=== PATIENT | male | born 1960 | race Caucasian/White ===

== ENCOUNTER 2016-08-18 13:07 | Emergency (ER) | payer OTHER ==
[2016-08-18 13:59] VITALS: BP 120/71; PULSE 87; RESP 16; TEMP 97.1
--- NOTE | 2016-08-18 14:14 | ED ---
General Adult HPI - General Chief complaint: Extremity Injury, Lower Stated complaint: Fall - Leg Injury/Pain Time Seen by Provider: 08/18/16 14:02 Source: patient, RN notes reviewed Mode of arrival: wheelchair Limitations: no limitations - History of Present Illness Initial comments: This is a 56-year-old male who presents with left knee pain 2 days. Patient states he hit his left knee on a file cabinet while walking to the bathroom. Patient states after this he has had pain to the lateral aspect of the left knee. Patient states there is pain with ambulation. Patient states he has a history of hairline fractures of the left hip in june 2016, patient states his left hip pain is at baseline today. Patient has already been evaluated by a physician for his left hip and patient has been using crutches for this. Patient denies any numbness/tingling/weakness to the left lower extremity.Patient denies any recent fever, chills, shortness breath, chest pain , abdominal pain, nausea/vomiting/diarrhea, back pain, hematuria, headache, or visual changes, or any other complaints. - Related Data Home Medications Medication Instructions Recorded Confirmed Baclofen [Lioresal] 10 mg PO TID 07/16/16 07/16/16 Gabapentin [Neurontin] 100 mg PO TID 07/16/16 07/16/16 Lisinopril [Zestril] 10 mg PO DAILY 07/16/16 07/16/16 amLODIPine [Norvasc] 5 mg PO DAILY 07/16/16 07/16/16 Previous Rx's Medication Instructions Recorded Hydrocodone/Acetaminophen [[place] 0.5 tab PO BID PRN #12 12/23/15 7.5-325] Hydrocodone/Acetaminophen [[place] 1 each PO Q6HR PRN #20 tab 07/16/16 5-325] Ibuprofen [Motrin] 600 mg PO Q6HR PRN #40 day 07/16/16 HYDROcodone/APAP 5-325MG [[place] 1 tab PO Q6HR #12 tab 08/18/16 5-325] Allergies Allergy/AdvReac Type Severity Reaction Status Date / Time No Known Allergies Allergy Verified 07/16/16 14:40 Review of Systems ROS Statement: Those systems with pertinent positive or pertinent negative responses have been documented in the HPI. ROS Other: All systems not noted in ROS Statement are negative. Past Medical History Past Medical History: Hypertension History of Any Multi-Drug Resistant Organisms: None Reported Past Surgical History: Orthopedic Surgery Past Psychological History: No Psychological Hx Reported Smoking Status: Current every day smoker Past Alcohol Use History: Occasional Past Drug Use History: None Reported General Exam - General Exam Comments Initial Comments: General: The patient is awake and alert, in no distress, and does not appear acutely ill. Neck: The neck is supple, there is no tenderness or JVD. Cardiovascular: There is a regular rate and rhythm. No murmur, rub or gallop is appreciated. Respiratory: Lungs are clear to auscultation, respirations are non-labored, breath sounds are equal. No wheezes, stridor, rales, or rhonchi. Musculoskeletal: There is tenderness to palpation over the lateral aspect of the left knee. There is a small bruise to the lateral aspect of the left knee. There is no effusion, swelling or erythema. Limited range of motion of the left lower extremity at the knee joint due to pain. Strength 5/5 and Sensation intact. Posterior tibial pulses 2+ bilaterally. Capillary refill is normal at less than 2 seconds. Neurological: A&O x 3. CN II-XII intact, There are no obvious motor or sensory deficits. Coordination appears grossly intact. Speech is normal. Skin: Skin is warm and dry and no rashes or lesions are noted. Psychiatric: Normal mood and affect. Limitations: no limitations Course Vital Signs 08/18/16 13:55 Temperature 97.1 F L Pulse Rate 87 Respiratory 16 Rate Blood Pressure 120/71 O2 Sat by Pulse 97 Oximetry Medical Decision Making - Medical Decision Making Is a 56-year-old male presents with left knee pain 2 days. On physical exam There is tenderness to palpation over the lateral aspect of the left knee. There is a small bruise to the lateral aspect of the left knee. There is no effusion, swelling or erythema. Limited range of motion of the left lower extremity at the knee joint due to pain. Strength 5/5 and Sensation intact. Posterior tibial pulses 2+ bilaterally. Capillary refill is normal at less than 2 seconds. Patient already has a knee immobilizer at home from a past visit to the . X-rays of the left knee were done and reviewed showing:#1 no acute fracture or dislocation. 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 Correlate clinically to exclude fracture. Reported by Dr. Stanley. Patient is tender to the upper outer quadrant of the patella. Patient at this time will be given a knee immobilizer and a referral for orthopedics. Discussed rest, ice, elevate and use knee immobilizer for support. Patient already has crutches. Discussed nonweightbearing to the left lower extremity. Discussed return parameters. Discussed that patient should follow up with PCP in one to 2 days or return to the [facility] for any worsening symptoms or for any further concerns. Patient was receptive to this plan and patient will be discharged home. I discussed his case with attending physician Dr. Junior who agrees the plan as stated above. Disposition Clinical Impression: Patellar fracture Disposition: HOME SELF-CARE Condition: Good Instructions: Patellar Fracture (ED) Additional Instructions: Please rest, ice, elevate, and use knee immobilizer for support. Please do not put any weight on the left lower extremity and use your crutches. Please use medication as prescribed. Please follow-up with orthopedics in the next 1-2 days or return to the [facility] for any worsening symptoms or for any further concerns. Prescriptions: HYDROcodone/APAP 5-325MG [[place] 5-325] 1 tab PO Q6HR #12 tab Time of Disposition: 14:59
--- NOTE | 2016-08-18 14:39 | XR ---
EXAMINATION TYPE: XR knee complete LT DATE OF EXAM: 08/18/2016 2:33 PM COMPARISON: 07/16/2016 HISTORY: Pain FINDINGS: Joint spaces are preserved. Osseous structures are intact. No acute fracture seen. Diffuse osteope shawna noted. Small amount of fluid in the suprapatellar bursa IMPRESSION: 1. No acute fracture or dislocation. 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 Correlate clinically to exclude f racture.
== END 2016-08-18 15:13 | disposition home or self-care (01) ==
LOC: EC 13:07
DX: S82.002A Unspecified fracture of left patella, initial encounter for closed fracture (principal); W22.03XA Walked into furniture, initial encounter; Y93.01 Activity, walking, marching and hiking; Z79.899 Other long term (current) drug therapy; I10 Essential (primary) hypertension; F17.200 Nicotine dependence, unspecified, uncomplicated
CPT/HCPCS: 73562; 99283; L1830 ×2

== ENCOUNTER → 2018-04-15 | Outpatient (CLI) | payer OTHER ==
--- NOTE | 2018-04-15 09:42 | XR ---
EXAMINATION TYPE: XR knee limited RT DATE OF EXAM: 04/15/2018 CLINICAL HISTORY: pain TECHNIQUE: Two views of the right knee are obtained. COMPARISON: 11/23/2015 FINDINGS: There is no acute fracture/dislocation. Severe narrowing medial tibiofemoral joint space. Mild patellofemoral joint space narrowing. Small to moderate suprapatellar joint effusion. The overly ing soft tissue appears unremarkable. IMPRESSION: There is no acute fracture or dislocation.ICD 10 NO FRACTURE, INITIAL EVALUATION
--- NOTE | 2018-04-15 09:53 | XR ---
EXAMINATION TYPE: XR lumbosacral spine min 4V DATE OF EXAM: 04/15/2018 CLINICAL HISTORY: pain COMPARISON: NONE TECHNIQUE: Frontal, lateral, and oblique images of the lumbar spine are obtained. FINDINGS: There are 5 lumbar type vertebral bodies identified. The lumbar spine shows satisfactory alignment without evidence of acute fracture or dislocation. Vertebral body heights are within normal limits. Severe multilevel degenerative disc space narrowing and spondylosis. Facet joint arthropathy noted. The overlying soft tissue appears unremarkable. IMPRESSION: No acute fracture or dislocation is seen in the lumbar spine.ICD 10 NO FRACTURE, INITIAL EVALUATION
== END | disposition home or self-care (01) ==
LOC: RADXRMAIN 08:53
PROVIDERS: ATTEND Family Medicine
DX: M54.5 Low back pain (principal); M25.561 Pain in right knee
CPT/HCPCS: 72110

== ENCOUNTER → 2019-01-04 | Outpatient (CLI) | payer OTHER ==
--- NOTE | 2019-01-04 15:23 | US ---
EXAMINATION TYPE: US kidneys/renal and bladder DATE OF EXAM: 01/04/2019 COMPARISON: NONE CLINICAL HISTORY: N28.89 R renal lesion. Right kidney lesion visualized on recent MRI of the lower freddy mber at open MRI. EXAM MEASUREMENTS: Right Kidney: 10.2 x 5.3 x 5.2 cm Left Kidney: 10.7 x 6.0 x 4.8 cm Right Kidney: no evidence of hydronephrosis Left Kidney: Solitary hypoechoic lesion upper pole = 1.4 x 1.0 x 1.3cm Bladder: appears wnl Bilateral Jets seen: yes There is no evidence for hydronephrosis at this point in time. No nephrolithiasis is seen. The urin lazaro bladder is anechoic. Bilateral ureteral jets are seen. IMPRESSION: 1.4 cm left renal lesion does not demonstrate clear increased through transmission and do es not demonstrate definitive characteristics of a cyst. Therefore three-phase enhanced CT abdomen is recommended for further characterization.
== END ==
LOC: RADUSWWP 13:58
PROVIDERS: ATTEND Internal Medicine
DX: N28.9 Disorder of kidney and ureter, unspecified (principal)
CPT/HCPCS: 76770

== ENCOUNTER → 2019-02-28 | Outpatient (CLI) | payer OTHER ==
--- NOTE | 2019-02-28 16:46 | CT ---
EXAMINATION TYPE: CT abdomen wo con DATE OF EXAM: 02/28/2019 COMPARISON: Ultrasound kidneys 01/04/2019 INDICATION: Right renal lesion. DLP: 547 mGycm, Automated exposure control for dose reduction was used. CONTRAST: 0 mL of Isovue 300. Study performed without Oral Contrast TECHNIQUE: Axial images were obtained from above the diaphragm to iliac crests in the axial plane at 5 mm thick sections. Reconstructed images are reviewed on the computer in the coronal plane. FINDINGS: Limited CT sections are obtained the lung bases. The lung bases are clear. CT ABDOMEN: Liver: Normal Spleen: Normal Pancreas: Normal Adrenal glands: The adrenal glands are normal. Gallbladder: Normal Kidneys: No masses are evident. No hydronephrosis is present. There is a 0.7 x 1.5 cm low-density e xophytic area on the mid posterior lateral kidney corresponding to the ultrasound finding. This measu res -10 Hounsfield units and may represent a small cyst. No renal stones are evident. Aorta: Vascular calcification is within the aorta. Inferior vena cava: Normal. Note is made of diverticular changes within the visualized portion of the sigmoid colon. Fecal debris is within the colon. IMPRESSIONS: 1. Left renal lesion at the mid cortex corresponds to the ultrasound finding. Findings appear sugges tive for, although cannot be conclusive based on the noncontrast CT examination, for cyst. Monitoring with ultrasound in 6 months is recommended.
== END | disposition home or self-care (01) ==
LOC: RADCTMAIN 10:55
PROVIDERS: ATTEND Internal Medicine
DX: N28.89 Other specified disorders of kidney and ureter (principal)
CPT/HCPCS: 74150

== ENCOUNTER → 2019-05-16 | Outpatient (CLI) | payer OTHER ==
[2019-05-16 12:58] LABS: INR 0.8 (<1.2); Partial Thromboplastin Time 25.9 sec (22.0-30.0); Prothrombin Time 9.3 sec (9.0-12.0)
[2019-05-16 13:04] LABS: ALT 18 U/L (21-72); AST 18 U/L (17-59); African American GFR (CKD) >90 (>60 ml/min/1.73 sqM); Albumin 3.8 g/dL (3.5-5.0); Alkaline Phosphatase 83 U/L (38-126); Anion Gap 9 mmol/L; Blood Urea Nitrogen 13 mg/dL (9-20); Calcium 9.2 mg/dL (8.4-10.2); Carbon Dioxide 31 mmol/L (22-30); Chloride 96 mmol/L (98-107); Glucose 112 mg/dL (74-99); HGB 13.8 gm/dL (13.0-17.5); MCH 33.4 pg (25.0-35.0); MCHC 33.7 g/dL (31.0-37.0); MCV 99.2 fL (80.0-100.0); Mean Platelet Volume 5.1; Platelet Count 478 k/uL (150-450); Potassium 3.7 mmol/L (3.5-5.1); RBC 4.14 m/uL (4.30-5.90); RDW 13.5 % (11.5-15.5); Sodium 136 mmol/L (137-145); Total Bilirubin 0.5 mg/dL (0.2-1.3); Total Protein 6.6 g/dL (6.3-8.2); WBC 11.1 k/uL (3.8-10.6)
[2019-05-16 13:21] LABS: Appearance,Urine Clear (Clear); Bilirubin,Urine Negative (Negative); Blood,Urine Negative (Negative); Color,Urine Yellow; Glucose,Urine (UA) Negative (Negative); Ketones,Urine Negative (Negative); Leukocyte Esterase,Urine Negative (Negative); Nitrite,Urine Negative (Negative); Protein,Urine Negative (Negative); Specific Gravity,Urine 1.017 (1.001-1.035); Urobilinogen,Urine <2.0 mg/dL (<2.0)
== END | disposition home or self-care (01) ==
LOC: LABPAT 11:54
PROVIDERS: ATTEND Orthopaedic Surgery
DX: Z01.812 Encounter for preprocedural laboratory examination (principal); Z01.818 Encounter for other preprocedural examination
CPT/HCPCS: 36415; 80053; 81003; 85027; 85610; 85730; 87070

== ENCOUNTER 2019-05-29 13:13 | Day surgery (SDC) | payer OTHER ==
[2019-05-23 11:44] VITALS: BMI 28.8
[~2019-05-29 13:13] MED LIST: ACETAMINOPHEN TAB 500 MG TAB PO ONE; DEXAMETHASONE SOD PHOSPHATE 10 MG/ML 1 ML VIAL IV ONE; HYDROmorphone 0.5 MG/0.5 ML SYRINGE IVP PRN; LACTATED RINGERS 1,000 ML IV SCH; MELOXICAM 7.5 MG TAB PO ONE; MIDAZOLAM 2 MG/2 ML VIAL IV PRN; ONDANSETRON 4 MG/2 ML VIAL IVP ONE; ROPIVACAINE 246.25 MG, EPINEPHrine 0.5 MG, KETOROLAC 30 MG, cloNIDine HCL/PF 80 MCG, WA... MISCELLANE ONE; SCOPOLAMINE 1.5MG/72HR PATCH TRANSDERM ONE; TRANEXAMIC ACID 1,000 MG in SODIUM CHLORIDE 0.9% 100 ML IVPB ONE
[2019-05-29 14:00] VITALS: BP 164/83; PULSE 100; RESP 16; TEMP 98.7
[2019-05-29] MEDS ORDERED: LIDOCAINE 1% 20 ML VIAL (10MG/ML) FOR IV START INTRADERMA ONE (14:29)
[2019-05-29] MEDS ORDERED: MIDAZOLAM 2 MG/2 ML VIAL IV ONE (14:35)
[2019-05-29] MEDS ORDERED: fentaNYL (PF) 50 MCG/ML 2 ML AMP IV ONE (14:35)
== END 2019-05-29 15:05 | disposition home or self-care (01) ==
LOC: OR 13:13
PROVIDERS: ATTEND Orthopaedic Surgery
DX: Z09 Encounter for follow-up examination after completed treatment for conditions other than malignant neoplasm (principal); Z53.09 Procedure and treatment not carried out because of other contraindication; H91.90 Unspecified hearing loss, unspecified ear; Z72.0 Tobacco use; I12.9 Hypertensive chronic kidney disease with stage 1 through stage 4 chronic kidney disease, or unspecified chronic kidney disease; N18.9 Chronic kidney disease, unspecified; Z79.891 Long term (current) use of opiate analgesic; Z79.899 Other long term (current) drug therapy
CPT/HCPCS: J2250; J1100; J2405; J3010

== ENCOUNTER 2019-06-02 10:41 | Inpatient (IN) | payer OTHER ==
[~2019-06-02 10:41] MED LIST changes: -DEXAMETHASONE SOD PHOSPHATE 10 MG/ML 1 ML VIAL IV ONE; -HYDROmorphone 0.5 MG/0.5 ML SYRINGE IVP PRN; -MELOXICAM 7.5 MG TAB PO ONE; -SCOPOLAMINE 1.5MG/72HR PATCH TRANSDERM ONE
[2019-06-02] MEDS: MELOXICAM 7.5 MG TAB PO ONE ×2 (11:21→18:32)
[2019-06-02] MEDS ORDERED: LIDOCAINE 1% 20 ML VIAL (10MG/ML) FOR IV START INTRADERMA ONE (11:43)
[2019-06-02] MEDS ORDERED: MIDAZOLAM 2 MG/2 ML VIAL IV ONE (12:09)
[2019-06-02] MEDS ORDERED: TRANEXAMIC ACID 1,000 MG/10 ML VIAL ONE (12:53)
[2019-06-02] MEDS ORDERED: PROPOFOL 10 MG/ML 20 ML VIAL IV ONE (12:53)
[2019-06-02] MEDS ORDERED: MIDAZOLAM 2 MG/2 ML VIAL ONE (12:53)
[2019-06-02] MEDS ORDERED: fentaNYL (PF) 50 MCG/ML 2 ML AMP ONE (12:53)
[2019-06-02] MEDS ORDERED: SODIUM CHLORIDE 0.9% 100 ML BAG ONE (12:53)
[2019-06-02] MEDS ORDERED: ROPIVACAINE 0.2%-NS ON-Q PUMP 1,090 MG, EMPTY PAIN BALL 1 EACH MISCELLANE PRN (13:31)
[2019-06-02] MEDS ORDERED: ceFAZolin 3,000 MG in SODIUM CHLORIDE 0.9% IRRIGATIO 3,000 ML IRRIGATION ONE (13:32)
--- NOTE | 2019-06-02 13:33 | P.ANPRN ---
Procedure Note - Anesthesia - Nerve Block Performed Right Adductor Canal Infusion Time Out Performed: Yes Date of Procedure: 06/02/19 Procedure Start Time: 12:08 Procedure Stop Time: 12:15 Location of Patient Procedure: PreOp Indication: Acute Post-Operative Pain, Requested by Surgeon Sedation Type: Sedate with meaningful contact maintained Preparation: Sterile Prep, Sterile Dressing Position: Supine Catheter: Indwelling Needle Types: Pajunk Needle Gauge: 18 Ultrasound used to visualize needle placement: Yes Ultrasound used to observe medication spread: Yes Injectate: 0.5% Ropivacaine (see comment for volume) (20 ml) Blood Aspirated: No Pain Paresthesia on Injection Noted: No Resistance on Injection: Normal Image Stored and Saved: Yes Events: Uneventful and Well Tolerated
[2019-06-02] MEDS ORDERED: LACTATED RINGERS 1,000 ML IV ONE (13:50)
--- NOTE | 2019-06-02 14:35 | P.OP ---
Date of Procedure: 06/02/19 Procedure(s) Performed: PREOPERATIVE DIAGNOSIS: Right knee severe osteoarthritis with genu varum POSTOPERATIVE DIAGNOSIS: Right knee severe osteoarthritis with genu varum OPERATION: Right knee cemented total replacement arthroplasty. ANESTHESIA: Spinal ESTIMATED BLOOD LOSS: 50 ml. NURSE DISCHARGE: Izabel Duvall PA-C (assistance with: patient positioning, retraction, exposure, hemostasis, leg positioning, implantation, irrigation, closure, dressing) COMPLICATIONS: None apparent. COMPONENTS IMPLANTED: Journey II BCS total knee system from [facility] INDICATIONS: Mr. Harley is a 59-year-old male with a history of right knee osteoarthritis. The patient's knee is end-stage, and conservative management has failed. The operation of knee replacement has been discussed at length in the office, as well as potential risks and complications. These are inclusive of, but not limited to: bleeding, infection, scarring, discomfort, blood vessel and nerve damage, need for further surgery, failure to relieve symptoms, persistence, recurrence, or worsening of problems, loosening, dislocation, wear, blood clot, pulmonary embolism, , gait dysfunction, stiffness, and other risks as discussed in the office. The patient elects to proceed and the consent form has been signed. PROCEDURE: The patient was taken to the operating room and positioned on the operating room table in the supine position. Anesthesia was initiated. Care was taken to make sure that all pressure points were adequately padded. The operative lower extremity was prepped and draped in the usual aseptic fashion using ChloraPrep. Ioban drape was used for the case and the patient received intravenous antibiotics within one hour of the incision. A pneumotourniquet and leg steele were used for the case. The limb was exsanguinated with an Esmarch bandage and the tourniquet was inflated to 350 mmHg. Time-out was called confirming the patient's identity, side, procedure and administration of antibiotics and tranexamic acid. The incision was then created midline directly over the right knee, carried down through skin and into the subcutaneous tissues and down to fascia. Full thickness subcutaneous medial flap was developed. Medial parapatellar arthrotomy was performed and the interior of the knee was inspected. There was end-stage osteoarthritis of the knee with a mild to moderate genu valgum type deformity. The fat pad was excised and proximal medial release on the tibia was completed using meticulous dissection and a curved osteotome. The anterior cruciate ligament was taken down. Note was made of significant attrition of the anterior and significant degenerative appearance of the cruciate ligaments. The exposure was excellent. The knee was flexed 90 degrees and the patella was everted. The [employer] pre- made distal cutting block was attached and pinned into position. The planned cut was analyzed visually and with the alignment melody and found to be satisfactory without the need for any adjustment. The oscillating saw was then used to make the distal femoral cut and make the alignment holes for the 5 in 1 block. This cut was confirmed to be flat with the flat end of an osteotome. The 5 in 1 block was then used to create the anterior posterior condylar resections and the chamfer cuts. The retractors were placed around the tibia and the tibial surface was addressed. The Visionaire pre-made guide was placed onto the exposed tibial surface and pinned into position to shelby the rotational alignment. The alignment of the guide was checked for depth of plannned resection, slope, and varus valgus. Guide was confirmed to be in good position and the tibial cut was then created with protection of the posterior neurovascular structures and the collateral ligaments. The tibial cut surface was removed and sized. Spacer block technique was then used to confirm that the flexion and extension gaps were equal. Soft tissue releases and adjustment of the tibial and/or femoral cuts were made, as necessary, until the gaps were equal. This included release of the posterior cruciate ligament, which was excessively tight in this patient. Prior to placing trial components, anesthetic solution consisting of ropivicaine with epinephrine, ketorolac, and clonidine was injected carefully and methodically in a grid pattern using aspiration technique into the soft tissue around the knee circumferentially, starting with the deeper tissues first and progressing to fascia, and then finally the skin/subcutaneous tissue. Particular care was taken when injecting the posterior capsule, with avoidance of the midline posterior area. The trial components were inserted. The tibial tray was allowed to self center and the patella was noted to track very well. The position of the tibial component was marked and noted to be nearly exactly aligned with the pre-drilled holes from the [employer]aire guide. The tibia was then finished for a stemmed tibial component. Patellar resurfacing was performed using a reamer. The size of the required patellar component was estimated and the patellar surface was then reamed down to a residual thickness which would recreate the cold springs thickness with the component. The exact placement of the patellar component was adjusted for posit ion based on preoperative x-rays and intraoperative findings. Trial components were removed and the cut surfaces of the bone were pulse lavaged thoroughly and dried. Cement was mixed on the back table and applied to the final components. Cement was then applied to the tibial surface and pressurized into the surface using finger pressurization technique. The tibial component was then applied and excess cement was removed after it was impacted securely and noted to be flush with the cut surface. In similar fashion, the cement was applied to the cut femoral surface, pressurized in using finger pressurization and the component was impacted into place. Excess cement was removed. The polyethylene spacer was then implanted and locked into position. The patellar component was then applied in similar technique and a patellar clamp was used to hold the patella in place as the cement hardened. Once the cement had fully hardened, the knee was reinspected. Any other cement extrusion was removed and final kinematic testing showed range of motion from 0 to 130 degrees with excellent stability, both medially and laterally and appropriate alignment of the leg. Patellar tracking was excellent. The knee was then thoroughly pulse lavaged with normal saline. The tourniquet was deflated and hemostasis was obtained with electrocautery and IV tranexamic acid, 1 g given at the start of the operation and 1 g at the start of closure. Closure was with #2 Ethibond in the fascia/capsule and supplemented with #2 Quill, 2-0 Vicryl suture was used for the subcutaneous tissues and 3-0 Quill for the skin. Dermabond/Steri-Strips were then applied. A lightly compressive dressing was applied using Webril and an Den wrap. The patient was then transferred to stretcher and taken to the recovery room in stable condition. Sponge and needle counts were correct.
[2019-06-02] MEDS ORDERED: HYDROmorphone 0.5 MG/0.5 ML SYRINGE IVP PRN ×2 (15:18)
[2019-06-02] MEDS ORDERED: NALOXONE 0.4 MG/ML 1 ML VIAL IV PRN (15:18)
[2019-06-02] MEDS ORDERED: BISACODYL 10 MG SUPP RECTAL PRN (15:18)
[2019-06-02] MEDS ORDERED: ONDANSETRON 4 MG/2 ML VIAL IVP PRN (15:18)
[2019-06-02] MEDS ORDERED: NA PHOS,M-B/NA PHOS,DI-BA 133 ML ENEMA RECTAL PRN (15:18)
[2019-06-02] MEDS ORDERED: MAGNESIUM HYDROXIDE 2,400 MG/10 ML CUP PO PRN (15:18)
[2019-06-02] MEDS ORDERED: HYDROcodone/APAP 7.5-325MG 1 EACH TAB PO PRN (15:18)
[2019-06-02] MEDS: HYDROmorphone 0.5 MG/0.5 ML SYRINGE IVP PRN ×4 (15:47→16:07)
--- NOTE | 2019-06-02 15:49 | XR ---
EXAMINATION TYPE: XR knee limited RT DATE OF EXAM: 06/02/2019 COMPARISON: NONE TECHNIQUE: Two views submitted HISTORY: Post op FINDINGS: There is a prosthetic knee in near anatomic alignment. There is soft tissue edema and emphysema. IMPRESSION: 1. Postoperative change. Appears in near-anatomic alignment
[2019-06-02] MEDS ORDERED: diphenhydrAMINE 50 MG/ML 1 ML VIAL IVP ONE (16:03)
[2019-06-02] MEDS: LACTATED RINGERS 1,000 ML IV SCH (16:07)
[2019-06-02 17:05] VITALS: BMI 29.2
[2019-06-02] MEDS: HYDROcodone/APAP 10-325MG 1 EACH TAB PO PRN (17:14)
[2019-06-02] MEDS ORDERED: ALPRAZolam 0.25 MG TAB PO PRN (18:02)
[2019-06-02] MEDS: ASPIRIN 325 MG TAB PO SCH (20:23)
[2019-06-02] MEDS: HYDROmorphone 1 MG/ML 1 ML SYRINGE IVP PRN (20:23)
[2019-06-02] MEDS: SENNOSIDES-DOCUSATE SODIUM 1 EACH TAB PO SCH (20:24)
[2019-06-02] MEDS: GABAPENTIN 300 MG CAP PO SCH (20:24)
[2019-06-02] MEDS: NEOMYCIN-BACITRACIN-POLY OINT 14 GM TUBE TOPICAL SCH ×2 (20:34→22:01)
[2019-06-02] MEDS: CHLORHEXIDINE GLUCONATE 15 ML CUP MUCOUS MEM SCH (21:56)
[2019-06-02] MEDS: NICOTINE 14MG/24HR PATCH TRANSDERM SCH (21:56)
--- NOTE | 2019-06-02 22:40 | CONS ---
CONSULTATION DATE OF SERVICE: 06/02/2019 REASON FOR CONSULTATION: Advice regarding hypertension and multiple medical issues, requested by Dr. Hummel. HISTORY OF PRESENT ILLNESS: This 59-year-old gentleman with a past medical history of hard of hearing, history of hypertension, history of DJD, history of pneumonia being followed by Dr. Guerra in the outpatient setting underwent right total knee arthroplasty by Dr. Hummel. The patient complains of throbbing pain in the knee. Otherwise, there is no history of chest pain, history of palpitations, history of headache, loss of consciousness, nausea, vomiting, diarrhea, fever, rigors, chills at this time. Blood pressure is slightly elevated at this time. PAST MEDICAL HISTORY: History of hard of hearing, hypertension, history of DJD, history of pneumonia. MEDICATIONS: Home medications are: 1. Allopurinol 100 mg p.o. daily. 2. Hydrocodone 2 tablets p.o. q.i.d. 3. Calcitriol 0.25 mg Wednesday. 4. Chlorthalidone 25 mg p.o. daily. 5. PerioGard 15 mL p.o. b.i.d. 6. Neosporin topically q.i.d. 7. Iron 320 mg p.o. daily. 8. Vitamin D3 2000 daily. 9. Norvasc 10 mg p.o. daily. 10.Neurontin 300 mg p.o. q.i.d. 11.Senokot-S 1 tablet p.o. b.i.d. 12.Aspirin 320 mg p.o. b.i.d. ALLERGIES: None. FAMILY HISTORY: No history of any heart disease or strokes in the family. SOCIAL HISTORY: Continued smoking. Occasional alcohol intake. REVIEW OF SYSTEMS: ENT: No diminished vision. No diminished hearing. CARDIOVASCULAR: No angina or palpitations. RESPIRATION: No cough or hemoptysis. GI no nausea or vomiting. no dysuria. NERVOUS SYSTEM: No numbness or weakness. ALLERGY/IMMUNOLOGY: No asthma or hayfever. MUSCULOSKELETAL as mentioned earlier. HEMATOLOGY/ONCOLOGY: No history of anemia. ENDOCRINE: No history of diabetes or hypothyroidism. CONSTITUTIONAL: As mentioned earlier. DERMATOLOGY: Negative. RHEUMATOLOGY: Negative. PSYCHIATRIC: As mentioned earlier. PHYSICAL EXAMINATION: Alert and oriented times three. Pulse is 80. Blood pressure 120/75, respiration 16. Temperature normal. Pulse ox 94 percent on 2 L. HEENT is conjunctivae normal. NECK: No JVD. CARDIOVASCULAR: S1, S2 muffled. RESPIRATORY: Breath sounds diminished in the bases. No rhonchi. No crackles. ABDOMEN: Soft, nontender. LEGS: Status post right knee joint arthroplasty. NERVOUS SYSTEM: Higher functions as mentioned earlier. Moves all 4 limbs. No focal motor or sensory deficits. LYMPHATICS: No lymph nodes palpable in the neck, axillae or groin. JOINTS: As mentioned earlier. LABS: The preop labs: WBC 11, hemoglobin 13.8. Coags are within normal limits. Chem panel showed glucose 112, otherwise other labs unremarkable. ASSESSMENT: 1. Status post right total knee joint arthroplasty. 2. Hypertension. 3. History of degenerative joint disease. 4. History of pneumonia. 5. History of renal failure. 6. History of nicotine dependence. RECOMMENDATIONS AND DISCUSSION: In this 59-year-old gentleman who presented with multiple medical problems, we will monitor the patient closely. Continue the current medications, symptomatic treatment. Otherwise, I recommend initiate the home dose of hypertensive medications. Monitor blood pressure closely and otherwise a copy of this being forwarded to Dr. Guerra who is the primary physician. MMODL / IJN: [id number] /
[2019-06-03] MEDS: HYDROmorphone 1 MG/ML 1 ML SYRINGE IVP PRN ×6 (00:07→21:53)
[2019-06-03] MEDS: TEMAZEPAM 15 MG CAP PO PRN (00:07)
[2019-06-03] MEDS: GABAPENTIN 300 MG CAP PO SCH ×5 (00:22→21:02)
[2019-06-03] MEDS: HYDROcodone/APAP 10-325MG 1 EACH TAB PO PRN ×3 (04:17→18:05)
[2019-06-03] MEDS: LACTATED RINGERS 1,000 ML IV SCH ×2 (04:46→13:27)
[2019-06-03 06:59] LABS: Basophils % (A) 0 %; Eosinophils % (A) 0 %; HCT 40.6 % (39.0-53.0); HGB 13.9 gm/dL (13.0-17.5); Lymphocytes % (A) 6 %; MCH 34.2 pg (25.0-35.0); MCHC 34.2 g/dL (31.0-37.0); MCV 99.9 fL (80.0-100.0); Mean Platelet Volume 5.2; Monocytes # (A) 0.7 k/uL (0-1.0); Monocytes % (A) 4 %; Neutrophils # (A) 16.1 k/uL (1.3-7.7); Neutrophils % (A) 89 %; Platelet Count 367 k/uL (150-450); RBC 4.06 m/uL (4.30-5.90); RDW 13.2 % (11.5-15.5)
[2019-06-03] MEDS: NICOTINE 14MG/24HR PATCH TRANSDERM SCH (08:26)
[2019-06-03] MEDS: MELOXICAM 7.5 MG TAB PO SCH (08:26)
[2019-06-03] MEDS: CHOLECALCIFEROL 1,000 UNIT TAB PO SCH (08:26)
[2019-06-03] MEDS: ASPIRIN 325 MG TAB PO SCH ×2 (08:26→20:06)
[2019-06-03] MEDS: ALLOPURINOL 100 MG TAB PO SCH (08:26)
[2019-06-03] MEDS: CHLORTHALIDONE 25 MG TAB PO SCH (08:27)
[2019-06-03] MEDS: amLODIPine 10 MG TAB PO SCH (08:27)
[2019-06-03] MEDS: NEOMYCIN-BACITRACIN-POLY OINT 14 GM TUBE TOPICAL SCH ×4 (08:27→21:03)
--- NOTE | 2019-06-03 08:32 | P.PN ---
Subjective Progress Note Date: 06/03/19 This is a 59 year-old male who is status post right total knee arthroplasty. This is post operative day #1 and patient is seen and evaluated at bedside. Patient states that the right knee is very sore and he has had difficulty putting weight on the right leg due to pain. Patient denies any fever/chills, numbness, weakness, tingling, abdominal pain, shortness of breath or chest pain. Objective - Vital Signs Vital signs: Vital Signs Temp 97.8 F 06/03/19 07:20 Pulse 96 06/03/19 07:20 Resp 14 06/03/19 07:20 BP 177/94 06/03/19 07:20 Pulse Ox 92 L 06/03/19 07:20 Intake & Output 06/02/19 06/03/19 06/03/19 18:59 06:59 18:59 Intake Total 2101 Output Total 50 1250 300 Balance 2051 -1250 -300 Weight 89.811 kg Intake: IV 2100 Output: Urine 1250 300 Estimated Blood Loss 50 Other: Voiding Method Toilet Urinal # Voids 1 # Bowel Movements 2 - Exam Vital signs are stable. Patient is in no acute distress and is alert and oriented 3. Calf is soft and nontender to palpation. Incision is clean, dry, and intact. Thigh high KARLIE hose removed. Patient has full foot and ankle motion without pain or difficulty. Neurovascular status and circulatory status are intact. - Labs CBC & Chem 7: 06/03/19 06:30 Labs: Abnormal Lab Results - Last 24 Hours (Table) 06/03/19 Range/Units 06:30 WBC 18.0 H (3.8-10.6) k/uL RBC 4.06 L (4.30-5.90) m/uL Neutrophils # 16.1 H (1.3-7.7) k/uL Assessment and Plan (1) Osteoarthritis of right knee Current Visit: Yes Status: Acute Code(s): M17.11 - UNILATERAL PRIMARY OSTEOARTHRITIS, RIGHT KNEE SNOMED Code(s): 566875772322474 (2) S/P total knee arthroplasty Current Visit: Yes Status: Acute Code(s): Z96.659 - PRESENCE OF UNSPECIFIED ARTIFICIAL KNEE JOINT SNOMED Code(s): 3872252942005 Plan: #1 Continue with routine postoperative care and pain control, daily dressing changes. Recommend knee-high KARLIE hose instead of thigh-high KARLIE hose. #2 Anticoagulation with aspirin. #3 Physical therapy today. #4 Appreciate input from medicine. #5 Will add Toradol for pain control. #6 Anticipate discharge home with home care later today or tomorrow depending on pain control and physical therapy.
[2019-06-03] MEDS ORDERED: DIAZEPAM 5 MG/ML 2 ML INJ IVP PRN (08:56)
--- NOTE | 2019-06-03 09:36 | P.PN ---
Progress Note - Text Progress Note Date: 06/03/19 Pt complaining of severe pain in the proximal thigh and distal leg. Pt states that minimal discomfort at the knee. OnQ pump system was found to be clamped, so pt not receiving medication. VSS RLE catheter site clean and dry A/P POD#1 s/p R TKA w/ adductor canal catheter - resume OnQ @ 12 ml/hr - valium for muscle spasm - continue Electra and ketorolac
[2019-06-03] MEDS: KETOROLAC 30 MG/ML 1 ML VIAL IVP PRN ×3 (10:11→21:53)
[2019-06-03] MEDS: DIAZEPAM 5 MG TAB PO PRN ×3 (10:16→23:08)
[2019-06-03] MEDS: CHLORHEXIDINE GLUCONATE 15 ML CUP MUCOUS MEM SCH ×2 (13:28→21:02)
--- NOTE | 2019-06-03 13:39 | P.PN ---
Subjective 59-year-old status post total knee arthroplasty.patient does have history of COPD continues to smoke saturations are 92% on 3 L patient doesn't have any significant wheeze. We'll further evaluate his hypoxia with starting with the chest x-ray. His chest x-ray doesn't show anything significant that explains his hypoxia and he may need a CAT scan with contrast to rule out any pulmonary embolism. Patient also denied any chest pain. Patient denied any leg pain. Constitutional: Denied any fatigue denied any fever. Cardio vascular: denied any chest pain, palpitations Gastrointestinal denied any nausea vomiting Pulmonary: Denied any shortness of breath cough Neurologic denied any new focal deficits All inpatient medications were reviewed and appropriate changes in these medications as dictated in the interval history and assessment and plan. Objective - Vital Signs Vital signs: Vital Signs Temp 97.8 F 06/03/19 07:20 Pulse 96 06/03/19 07:20 Resp 14 06/03/19 07:20 BP 177/94 06/03/19 07:20 Pulse Ox 92 L 06/03/19 07:20 Intake & Output 06/02/19 06/03/19 06/03/19 18:59 06:59 18:59 Intake Total 2101 296 Output Total 50 1250 300 Balance 2051 -1250 -4 Weight 89.811 kg Intake: IV 2101 Oral 296 Output: Urine 1250 300 Estimated Blood Loss 50 Other: Voiding Method Toilet Urinal # Voids 1 # Bowel Movements 2 - Exam PHYSICAL EXAMINATION: GENERAL: The patient is alert and oriented x3, not in any acute distress. Well developed, well nourished. HEENT: Pupils are round and equally reacting to light. EOMI. No scleral icterus. No conjunctival pallor. Normocephalic, atraumatic. No pharyngeal erythema. No thyromegaly. CARDIOVASCULAR: S1 and S2 present. No murmurs, rubs, or gallops. PULMONARY: Chest is clear to auscultation, no wheezing or crackles. ABDOMEN: Soft, nontender, nondistended, normoactive bowel sounds. No palpable organomegaly. MUSCULOSKELETAL: No joint swelling or deformity. EXTREMITIES: No cyanosis, clubbing, or pedal edema. NEUROLOGICAL: Gross neurological examination did not reveal any focal deficits. SKIN: No rashes. - Labs CBC & Chem 7: 06/03/19 06:30 Labs: Abnormal Lab Results - Last 24 Hours (Table) 06/03/19 Range/Units 06:30 WBC 18.0 H (3.8-10.6) k/uL RBC 4.06 L (4.30-5.90) m/uL Neutrophils # 16.1 H (1.3-7.7) k/uL Assessment and Plan Plan: -acute hypoxic respiratory failure. And a chest x-ray my suspicion is low for pulmonary embolism may be related to fluid overload from IV fluids which will be discontinued at this time we will await chest x-ray findings. -Hypertension continue his home medications -Degenerative joint disease -COPD without any significant acute exacerbation continue with his and inhalational treatments. -leukocytosis reactive secondary to surgery no clinical signs or symptoms of infection but chest x-ray will be obtained because of above-mentioned reasons -right knee arthroplasty DVT prophylaxis and pain management as per primary service
--- NOTE | 2019-06-03 14:07 | XR ---
EXAMINATION TYPE: XR chest 2V DATE OF EXAM: 06/03/2019 HISTORY: R/O Pneumonia. REFERENCE: Previous study dated 12/21/2015. FINDINGS: The lungs are overinflated. The heart is mildly enlarged. The lungs are clear. Pleural spac es are clear. IMPRESSION: COPD.
[2019-06-03] MEDS: SENNOSIDES-DOCUSATE SODIUM 1 EACH TAB PO SCH (20:08)
[2019-06-04] MEDS: HYDROcodone/APAP 10-325MG 1 EACH TAB PO PRN ×6 (00:58→23:54)
[2019-06-04] MEDS: HYDROmorphone 1 MG/ML 1 ML SYRINGE IVP PRN ×2 (02:14→05:27)
[2019-06-04] MEDS: KETOROLAC 30 MG/ML 1 ML VIAL IVP PRN ×4 (04:03→22:06)
[2019-06-04] MEDS: ASPIRIN 325 MG TAB PO SCH ×2 (08:05→21:12)
[2019-06-04] MEDS: CHOLECALCIFEROL 1,000 UNIT TAB PO SCH (08:05)
[2019-06-04] MEDS: GABAPENTIN 300 MG CAP PO SCH ×4 (08:06→21:12)
[2019-06-04] MEDS: ALLOPURINOL 100 MG TAB PO SCH (08:06)
[2019-06-04] MEDS: MELOXICAM 7.5 MG TAB PO SCH (08:06)
[2019-06-04] MEDS: CHLORTHALIDONE 25 MG TAB PO SCH (08:06)
[2019-06-04] MEDS: NEOMYCIN-BACITRACIN-POLY OINT 14 GM TUBE TOPICAL SCH ×4 (08:06→21:13)
[2019-06-04] MEDS: amLODIPine 10 MG TAB PO SCH (08:06)
--- NOTE | 2019-06-04 08:12 | P.PN ---
Progress Note - Text Progress Note Date: 06/04/19 Patient with complaints of severe pain in the right thigh and distal leg. Denies pain at the knee and incision. Some improvement in the pain since yesterday with adjustments in medication regimen. VSS Right adductor catheter site clean and dry OnQ @ 12 ml/hr Right thigh soft, but tender to palpation A/P POD#2 R TKA w/ adductor catheter - continue multimodal analgesia
--- NOTE | 2019-06-04 08:15 | P.PN ---
Subjective Progress Note Date: 06/04/19 This is a 59 year-old male who is status post right total knee arthroplasty. This is post operative day #2 and patient is seen and evaluated at bedside. Patient states that he is still having difficulty bearing weight on the right lower extremity due to pain. Patient denies any fever/chills, numbness, weakness, tingling, abdominal pain, shortness of breath or chest pain. Objective - Vital Signs Vital signs: Vital Signs Temp 98.5 F 06/04/19 07:00 Pulse 100 06/04/19 07:00 Resp 16 06/04/19 07:00 BP 157/95 06/04/19 07:00 Pulse Ox 92 L 06/04/19 07:00 Intake & Output 06/03/19 06/04/19 06/04/19 18:59 06:59 18:59 Intake Total 1488 480 Output Total 900 775 Balance 588 -775 480 Intake: Oral 1488 480 Output: Urine 900 775 Other: Voiding Method Toilet Urinal # Voids 1 # Bowel Movements 1 - Exam Vital signs are stable. Patient is in no acute distress and is alert and oriented 3. Calf is soft and nontender to palpation. Dressing is clean, dry, and intact. Patient has full foot and ankle motion without pain or difficulty. Neurovascular status and circulatory status are intact. - Labs CBC & Chem 7: 06/03/19 06:30 Assessment and Plan (1) Osteoarthritis of right knee Current Visit: Yes Status: Acute Code(s): M17.11 - UNILATERAL PRIMARY OSTEOARTHRITIS, RIGHT KNEE SNOMED Code(s): 084179879371709 (2) S/P total knee arthroplasty Current Visit: Yes Status: Acute Code(s): Z96.659 - PRESENCE OF UNSPECIFIED ARTIFICIAL KNEE JOINT SNOMED Code(s): 9106576311419 Plan: #1 Continue with routine postoperative care and pain control, daily dressing changes. #2 Anticoagulation with aspirin. #3 Physical therapy today. #4 Appreciate input from medicine. #5 Anticipate discharge home with home care later today or tomorrow depending on pain control and physical therapy.
[2019-06-04] MEDS: NICOTINE 14MG/24HR PATCH TRANSDERM SCH (09:53)
[2019-06-04] MEDS ORDERED: IPRATROPIUM-ALBUTEROL 3 ML NEB INHALATION PRN (10:38)
[2019-06-04] MEDS: CHLORHEXIDINE GLUCONATE 15 ML CUP MUCOUS MEM SCH ×2 (11:07→21:12)
--- NOTE | 2019-06-04 11:36 | P.PN ---
Subjective 59-year-old status post total knee arthroplasty.patient does have history of COPD continues to smoke saturations are 92% on 3 L patient doesn't have any significant wheeze. We'll further evaluate his hypoxia with starting with the chest x-ray. His chest x-ray doesn't show anything significant that explains his hypoxia and he may need a CAT scan with contrast to rule out any pulmonary embolism. Patient also denied any chest pain. Patient denied any leg pain. 06/04/2019 patient has slight wheezing patient was started on inhaled steroids inhalational treatments will not require any systemic steroids chest x-ray did not show any pulmonary edema or pneumonia, but clinical suspicion for pulmonary embolism is extremely low patient is on DVT prophylaxis it twice a day of aspirin 325 mg Constitutional: Denied any fatigue denied any fever. Cardio vascular: denied any chest pain, palpitations Gastrointestinal denied any nausea vomiting Pulmonary: Denied any shortness of breath cough Neurologic denied any new focal deficits All inpatient medications were reviewed and appropriate changes in these medications as dictated in the interval history and assessment and plan. Objective - Vital Signs Vital signs: Vital Signs Temp 98.5 F 06/04/19 07:00 Pulse 100 06/04/19 07:00 Resp 16 06/04/19 07:00 BP 157/95 06/04/19 07:00 Pulse Ox 92 L 06/04/19 07:00 Intake & Output 06/03/19 06/04/19 06/04/19 18:59 06:59 18:59 Intake Total 1488 480 Output Total 900 775 Balance 588 -775 480 Intake: Oral 1488 480 Output: Urine 900 775 Other: Voiding Method Toilet Urinal # Voids 1 # Bowel Movements 1 - Exam PHYSICAL EXAMINATION: GENERAL: The patient is alert and oriented x3, not in any acute distress. Well developed, well nourished. HEENT: Pupils are round and equally reacting to light. EOMI. No scleral icterus. No conjunctival pallor. Normocephalic, atraumatic. No pharyngeal erythema. No thyromegaly. CARDIOVASCULAR: S1 and S2 present. No murmurs, rubs, or gallops. PULMONARY:Minimal expiratory wheeze on exam no crackles were appreciated ABDOMEN: Soft, nontender, nondistended, normoactive bowel sounds. No palpable organomegaly. MUSCULOSKELETAL: No joint swelling or deformity. EXTREMITIES: No cyanosis, clubbing, or pedal edema. NEUROLOGICAL: Gross neurological examination did not reveal any focal deficits. SKIN: No rashes. - Labs CBC & Chem 7: 06/03/19 06:30 Assessment and Plan Plan: -acute hypoxic respiratory failure. chest x-ray did not show any significant abnormality but patient has COPD and emphysema, patient will be started on adult albuterol, ipratropium along with Symbicort. Patient is off oxygen today -Hypertension continue his home medications -Degenerative joint disease -COPD without any significant acute exacerbation continue with his and inhalational treatments. -leukocytosis reactive secondary to surgery no clinical signs or symptoms of infection but chest x-ray will be obtained because of above-mentioned reasons -right knee arthroplasty DVT prophylaxis and pain management as per primary service
[2019-06-04] MEDS: SYMBICORT 160-4.5 MCG INHALER INHALATION SCH (20:59)
[2019-06-04] MEDS: SENNOSIDES-DOCUSATE SODIUM 1 EACH TAB PO SCH (21:12)
[2019-06-04] MEDS: TEMAZEPAM 15 MG CAP PO PRN (21:12)
[2019-06-05] MEDS: KETOROLAC 30 MG/ML 1 ML VIAL IVP PRN ×2 (04:53→11:21)
[2019-06-05] MEDS: HYDROcodone/APAP 10-325MG 1 EACH TAB PO PRN ×2 (06:06→12:50)
[2019-06-05 07:40] LABS: Basophils % (A) 0 %; Eosinophils # (A) 0.2 k/uL (0-0.7); Eosinophils % (A) 2 %; HCT 34.6 % (39.0-53.0); HGB 11.5 gm/dL (13.0-17.5); Lymphocytes # (A) 1.1 k/uL (1.0-4.8); Lymphocytes % (A) 11 %; MCH 33.5 pg (25.0-35.0); MCHC 33.4 g/dL (31.0-37.0); MCV 100.2 fL (80.0-100.0); Mean Platelet Volume 5.9; Monocytes # (A) 0.6 k/uL (0-1.0); Monocytes % (A) 6 %; Neutrophils % (A) 80 %; Platelet Count 281 k/uL (150-450); RBC 3.45 m/uL (4.30-5.90); RDW 13.4 % (11.5-15.5)
--- NOTE | 2019-06-05 08:03 | P.PN ---
Progress Note - Text Progress Note Date: 06/05/19 Patient states the pain is much better than the previous days. Proximal thigh and distal leg pain improved. Minimal discomfort at the knee as before. Right adductor catheter @ 12 ml/hr VSS Right adductor catheter site clean and dry A/P POD#3 s/p R TKA - may remove adductor catheter prior to patient discharge - continue multimodal analgesia
[2019-06-05 08:07] VITALS: BP 138/79; RESP 14; TEMP 98
[2019-06-05] MEDS: MELOXICAM 7.5 MG TAB PO SCH (08:22)
[2019-06-05] MEDS: GABAPENTIN 300 MG CAP PO SCH ×2 (08:22→12:50)
[2019-06-05] MEDS: ALLOPURINOL 100 MG TAB PO SCH (08:22)
[2019-06-05] MEDS: amLODIPine 10 MG TAB PO SCH (08:22)
[2019-06-05] MEDS: NICOTINE 14MG/24HR PATCH TRANSDERM SCH (08:22)
[2019-06-05] MEDS: CHLORTHALIDONE 25 MG TAB PO SCH (08:22)
[2019-06-05] MEDS: ASPIRIN 325 MG TAB PO SCH (08:22)
[2019-06-05] MEDS: CHOLECALCIFEROL 1,000 UNIT TAB PO SCH (08:22)
[2019-06-05] MEDS: NEOMYCIN-BACITRACIN-POLY OINT 14 GM TUBE TOPICAL SCH ×2 (08:23→12:31)
[2019-06-05] MEDS: SYMBICORT 160-4.5 MCG INHALER INHALATION SCH (08:52)
[2019-06-05] MEDS ORDERED: CALCITRIOL 0.25 MCG CAP PO SCH (09:00)
--- NOTE | 2019-06-05 10:23 | P.DS ---
Providers Date of admission: 06/05/19 09:40 Expected date of discharge: 06/05/19 Attending physician: Usman Hummel Consults: 06/02/19 15:18 Consult Physician Routine Consulting Provider: Anastasiya Erwin Consult Reason/Comments: Medical management Do you want consulting provider notified?: Yes Primary care physician: Charlie Golden - Discharge Diagnosis(es) (1) Osteoarthritis of right knee Current Visit: Yes Status: Acute (2) S/P total knee arthroplasty Current Visit: Yes Status: Acute Hospital Course: This is a 59-year-old male who was last seen with complaint of continued right knee pain. The patient has a known history of degenerative arthritis of the right knee and presents to discuss surgical options. After discussion and consideration the patient elects to proceed with total right knee arthroplasty. The patient is seen preoperatively by his primary care physician and cleared for surgery. The patient is admitted to [facility] for total right knee arthroplasty. The procedures performed without complication or sequelae. Patient is doing well postoperatively. Vital signs are stable at discharge. Labs are stable at discharge. the patient is ambulating well with walker with minimal assistance. The patient is discharged to home on postop day #3.medical clearance the patient does have a pain contract with Dr. Domínguez but states they would like us to manage his acute postop pain. I was unable to contact Dr. Domínguez's office. I will send in a prescription for 1 week's worth. Please see orders and refer to the med rec for accurate list of medications. Patient Condition at Discharge: Good Plan - Discharge Summary Discharge Rx Participant: Yes New Discharge Prescriptions: New Aspirin 325 mg PO BID #1 tab Sennosides-Docusate Sodium [Senokot-S] 1 tab PO BID #60 tablet HYDROcodone/APAP 10-325MG [[place] 10-325] 1 - 2 tab PO Q4-6H PRN #50 tab PRN Reason: Pain No Action Gabapentin [Neurontin] 300 mg PO QID Cholecalciferol [Vitamin D3 (25 Mcg = 1000 Iu)] 2,000 unit PO DAILY amLODIPine [Norvasc] 10 mg PO QAM HYDROcodone/APAP 10-325MG [[place] 10-325] 2 tab PO QID Chlorthalidone 25 mg PO DAILY Allopurinol [Zyloprim] 100 mg PO DAILY Ferrous Sulfate [Iron] 325 mg PO DAILY Calcitriol 0.25 mcg PO MO Neomycin/Bacitracin/Polymyxinb [Neosporin Ointment] 1 applic TOPICAL QID Chlorhexidine Gluconate [Periogard] 15 ml PO BID Discharge Medication List Allopurinol [Zyloprim] 100 mg PO DAILY 05/23/19 [History] Calcitriol 0.25 mcg PO MO 05/23/19 [History] Chlorthalidone 25 mg PO DAILY 05/23/19 [History] Cholecalciferol [Vitamin D3 (25 Mcg = 1000 Iu)] 2,000 unit PO DAILY 05/23/19 [History] Ferrous Sulfate [Iron] 325 mg PO DAILY 05/23/19 [History] Gabapentin [Neurontin] 300 mg PO QID 05/23/19 [History] HYDROcodone/APAP 10-325MG [[place] 10-325] 2 tab PO QID 05/23/19 [History] amLODIPine [Norvasc] 10 mg PO QAM 05/23/19 [History] Neomycin/Bacitracin/Polymyxinb [Neosporin Ointment] 1 applic TOPICAL QID 05/30/19 [History] Chlorhexidine Gluconate [Periogard] 15 ml PO BID 05/31/19 [History] Aspirin 325 mg PO BID #1 tab 06/02/19 [Rx] Sennosides-Docusate Sodium [Senokot-S] 1 tab PO BID #60 tablet 06/02/19 [Rx] HYDROcodone/APAP 10-325MG [[place] 10-325] 1 - 2 tab PO Q4-6H PRN #50 tab 06/05/19 [Rx] Follow up Appointment(s)/Referral(s): [facility], [NON-STAFF] - As Needed Usman Hummel MD [STAFF PHYSICIAN] - 2 Weeks Activity/Diet/Wound Care/Special Instructions: May bear wt as tolerated w walker. May shower 48h post op if no drainage. Pt has pain contract with Dr Domínguez. Discharge Disposition: HOME WITH HOME HEALTH SERVICES
[2019-06-05 11:30] VITALS: PULSE 110
--- NOTE | 2019-06-05 11:40 | P.PN ---
Subjective 59-year-old status post total knee arthroplasty.patient does have history of COPD continues to smoke saturations are 92% on 3 L patient doesn't have any significant wheeze. We'll further evaluate his hypoxia with starting with the chest x-ray. His chest x-ray doesn't show anything significant that explains his hypoxia and he may need a CAT scan with contrast to rule out any pulmonary embolism. Patient also denied any chest pain. Patient denied any leg pain. 06/04/2019 patient has slight wheezing patient was started on inhaled steroids inhalational treatments will not require any systemic steroids chest x-ray did not show any pulmonary edema or pneumonia, but clinical suspicion for pulmonary embolism is extremely low patient is on DVT prophylaxis it twice a day of aspirin 325 mg 06/05/2019 Upper abolition patient saturations have gone down to 90% patient appears to have emphysema and COPD is not requiring any systemic steroids extensive counseling regarding nicotine cessation was provided and patient can be discharged my clinical suspicion for PE is extremely low Constitutional: Denied any fatigue denied any fever. Cardio vascular: denied any chest pain, palpitations Gastrointestinal denied any nausea vomiting Pulmonary: Denied any shortness of breath cough Neurologic denied any new focal deficits All inpatient medications were reviewed and appropriate changes in these medications as dictated in the interval history and assessment and plan. Objective - Vital Signs Vital signs: Vital Signs Temp 98 F 06/05/19 07:00 Pulse 110 H 06/05/19 11:29 Resp 14 06/05/19 08:43 BP 138/79 06/05/19 07:00 Pulse Ox 90 L 06/05/19 11:29 Intake & Output 06/04/19 06/05/19 06/05/19 18:59 06:59 18:59 Intake Total 480 Output Total 1025 Balance 480 -1025 Intake: Oral 480 Output: Urine 1025 Other: Voiding Method Toilet Urinal # Voids 2 - Exam PHYSICAL EXAMINATION: GENERAL: The patient is alert and oriented x3, not in any acute distress. Well developed, well nourished. HEENT: Pupils are round and equally reacting to light. EOMI. No scleral icterus. No conjunctival pallor. Normocephalic, atraumatic. No pharyngeal erythema. No thyromegaly. CARDIOVASCULAR: S1 and S2 present. No murmurs, rubs, or gallops. PULMONARY:Minimal expiratory wheeze on exam no crackles were appreciated ABDOMEN: Soft, nontender, nondistended, normoactive bowel sounds. No palpable organomegaly. MUSCULOSKELETAL: No joint swelling or deformity. EXTREMITIES: No cyanosis, clubbing, or pedal edema. NEUROLOGICAL: Gross neurological examination did not reveal any focal deficits. SKIN: No rashes. - Labs CBC & Chem 7: 06/05/19 06:52 Labs: Abnormal Lab Results - Last 24 Hours (Table) 06/05/19 Range/Units 06:52 RBC 3.45 L (4.30-5.90) m/uL Hgb 11.5 L (13.0-17.5) gm/dL Hct 34.6 L (39.0-53.0) % MCV 100.2 H (80.0-100.0) fL Neutrophils # 8.0 H (1.3-7.7) k/uL Assessment and Plan Plan: -acute hypoxic respiratory failure. chest x-ray did not show any significant abnormality but patient has COPD and emphysema, patient will be started on adult albuterol, ipratropium along with Symbicort. Patient will not require any home oxygen patient can be discharged from medical perspective on inhaled steroids and albuterol and. Opium -Hypertension continue his home medications -Degenerative joint disease -COPD with some exacerbation -leukocytosis reactive secondary to surgery no clinical signs or symptoms of infection but chest x-ray will be obtained because of above-mentioned reasons -right knee arthroplasty DVT prophylaxis and pain management as per primary service
[2019-06-05] MEDS: CHLORHEXIDINE GLUCONATE 15 ML CUP MUCOUS MEM SCH (12:30)
--- NOTE | 2019-06-06 12:33 | CDI ---
Documentation Clarification Form Date: 06/06/19 From: Shanae Jacob Phone: If you have a question about this query, please contact rAin Malik, [employer] at [phone] between 8am and 5pm. Admit Date: 06/05/19 Discharge Date: 06/05/19 Patient Name: Parveen Harley Visit Number: [id number] ATTENTION: The Clinical Documentation Specialists (CDI) and [facility] Coding Staff appreciate your assistance in clarifying documentation. Please respond to the clarification below the line at the bottom and electronically sign. The CDI & [facility] Coding staff will review the response and follow-up if needed. Please note: Queries are made part of the Legal Health Record. If you have any questions, please contact the author of this message via ITS. Dear Dr. Anastasiya Erwin, Patient was admitted as observation for right TKR, then admitted due to acute postop pain and acute hypoxic respiratory failure. History/Risk Factors: emphysema, hearing loss, HTN, CKD, smoker, Clinical Indicators: HTN with history of renal failure per consult. Per H&P patient has hx of HTN and kidney disease. Current BUN/CR/GFR: none Patients Baseline BUN/CR/GFR: none Treatment: IVF In order to capture the severity of condition, please clarify if the condition signifies: CKD Stage 1 (GFR > 90) CKD Stage 2 (GFR 60-89) CKD Stage 3 (GFR 30-59) CKD Stage 4 (GFR 15-29) CKD Stage 5 (GFR <15) ESRD Other, please specify Unable to determine Unable to determine MTDD
== END 2019-06-05 14:55 | disposition home health service (06) | DRG 983 ==
LOC: OR 10:41 → 4SSUR 15:08 → OR 23:42 → OBSVTOIN 06-05 09:40
PROVIDERS: ADMIT Orthopaedic Surgery; ATTEND Orthopaedic Surgery
PROC: 0SRC069 Replacement of Right Knee Joint with Oxidized Zirconium on Polyethylene Synthetic Substitute, Cemented, Open Approach (ICD-10-PCS; principal; 2019-06-02 12:30)
DX: J96.01 Acute respiratory failure with hypoxia (principal); G89.18 Other acute postprocedural pain; J43.9 Emphysema, unspecified; I12.9 Hypertensive chronic kidney disease with stage 1 through stage 4 chronic kidney disease, or unspecified chronic kidney disease; N18.9 Chronic kidney disease, unspecified; M62.838 Other muscle spasm; M17.11 Unilateral primary osteoarthritis, right knee; M21.161 Varus deformity, not elsewhere classified, right knee; M16.11 Unilateral primary osteoarthritis, right hip; D72.829 Elevated white blood cell count, unspecified; G56.00 Carpal tunnel syndrome, unspecified upper limb; H91.90 Unspecified hearing loss, unspecified ear; F17.210 Nicotine dependence, cigarettes, uncomplicated; Z71.6 Tobacco abuse counseling; Z79.891 Long term (current) use of opiate analgesic; Z79.899 Other long term (current) drug therapy; Z87.01 Personal history of pneumonia (recurrent); Z86.73 Personal history of transient ischemic attack (TIA), and cerebral infarction without residual deficits
CPT/HCPCS: 64448; 71046; 76942; 85025; 88300; 94640; 94760

== ENCOUNTER 2021-01-01 09:20 | Observation (INO) | payer OTHER ==
--- NOTE | 2021-01-01 09:54 | ED ---
Chest Pain HPI - General Chief Complaint: Chest Pain Stated Complaint: Chest pain, R leg swelling, and arm pain Time Seen by Provider: 01/01/21 09:27 Source: patient, RN notes reviewed Mode of arrival: wheelchair Limitations: no limitations - History of Present Illness Initial Comments: This is a 60-year-old male who states she's been having intermittent chest pain for the past several days also exertional dyspnea is not normal for him he states initially the pain in his chest that sharp but this morning it was achy with some left arm discomfort along with it. Also states she's had some right ankle swelling this morning. Currently at rest he feels fine with no chest pain or shortness of breath no fevers chills sweats cough no phlegm production. He does state he has been playing [employer] more than usual and did initially attributed the symptoms to that. MD Complaint: chest pain, other - Related Data Home Medications Medication Instructions Recorded Confirmed Chlorthalidone 25 mg PO DAILY 05/23/19 01/01/21 allopurinoL [Zyloprim] 100 mg PO DAILY 05/23/19 01/01/21 amLODIPine [Norvasc] 10 mg PO DAILY 05/23/19 01/01/21 Cyclobenzaprine [Flexeril] 10 mg PO TID PRN 01/01/21 01/01/21 Gabapentin 600 mg PO TID 01/01/21 01/01/21 HYDROcodone/APAP 10-325MG [[place] 1 tab PO TID PRN 01/01/21 01/01/21 10-325] Tiotropium Br/Olodaterol HCl 2 spray INHALATION RT-DAILY 01/01/21 01/01/21 [Stiolto Respimat Inhal [place]] Allergies Allergy/AdvReac Type Severity Reaction Status Date / Time No Known Allergies Allergy Verified 01/01/21 10:12 Review of Systems ROS Statement: Those systems with pertinent positive or pertinent negative responses have been documented in the HPI. ROS Other: All systems not noted in ROS Statement are negative. EKG Findings - EKG Results: EKG: interpreted by FATOU (Atrial fibrillation 124 heart rate QRS 98 QT since QTC 36/554 nonspecific T-wave configuration) Past Medical History Past Medical History: Hearing Disorder / Deafness, Hypertension, Musculoskeletal Disorder, Osteoarthritis (OA), Pneumonia Additional Past Medical History / Comment(s): 2 scabbed sores rt knee applying neosporin pt states to have rechecked prior to surgery by dr parekh, hx. renal failure 2 yrs. ago, hx. pneumonia x2 last year, bilateral torn rotator cuffs, gout, DDD, hx. fx C7 @age of 18, ca't lay flat on back, SOB w/exertion History of Any Multi-Drug Resistant Organisms: None Reported Past Surgical History: Orthopedic Surgery Additional Past Surgical History / Comment(s): arthroscopy rt knee Past Anesthesia/Blood Transfusion Reactions: No Reported Reaction Past Psychological History: No Psychological Hx Reported Smoking Status: Current every day smoker Past Alcohol Use History: Occasional Past Drug Use History: None Reported - Past Family History Mother Family Medical History: No Reported History General Exam - General Exam Comments Initial Comments: This is a well-developed well-nourished awake alert oriented times 3 male Limitations: no limitations General appearance: alert, anxious Head exam: Present: atraumatic, normocephalic, normal inspection Eye exam: Present: normal appearance, PERRL, EOMI. Absent: scleral icterus, conjunctival injection, periorbital swelling ENT exam: Present: normal exam, mucous membranes moist Neck exam: Present: normal inspection. Absent: tenderness, meningismus, lymphadenopathy Respiratory exam: Present: normal lung sounds bilaterally. Absent: respiratory distress, wheezes, rales, rhonchi, stridor Cardiovascular Exam: Present: normal rhythm, tachycardia, normal heart sounds. Absent: systolic murmur, diastolic murmur, rubs, gallop, clicks GI/Abdominal exam: Present: soft, normal bowel sounds. Absent: distended, tenderness, guarding, rebound, rigid Extremities exam: Present: normal inspection, full ROM, normal capillary refill, pedal edema (Trace edema without calf tenderness more so on the right to left). Absent: tenderness, joint swelling, calf tenderness Back exam: Present: normal inspection Neurological exam: Present: alert, oriented X3, CN II-XII intact Psychiatric exam: Present: normal affect, normal mood Skin exam: Present: warm, dry, intact, normal color. Absent: rash Course Vital Signs 01/01/21 01/01/21 01/01/21 09:21 09:34 10:15 Temperature 98.1 F Pulse Rate 124 H 118 H Pulse Rate [ 99 Pulse Oximetery ] Respiratory 18 20 Rate Blood Pressure 116/83 119/71 O2 Sat by Pulse 92 L 93 L Oximetry 01/01/21 11:45 Temperature 98.3 F Pulse Rate 86 Pulse Rate [ Pulse Oximetery ] Respiratory 17 Rate Blood Pressure 116/77 O2 Sat by Pulse 93 L Oximetry - Reevaluation(s) Reevaluation #1: 01/01/21 12:53 The patient did have evidence of possible PE with elevated d-dimer with the symptoms he presented with. CAT scan showed no CT evidence of PE at this time. Please see the complete report Chest Pain MDM - MDM I did discuss findings with the patient as well as Dr. Lima. Patient be admitted for evaluation of chest pain. Additionally he does have peripheral edema ultrasound of the right lower extremity will be performed Disposition Clinical Impression: Unstable angina pectoris, Chest pain Disposition: ADMITTED IP TO THIS HOSP Condition: Fair Referrals: Chico Guerra MD [Primary Care Provider] - 1-2 days
[2021-01-01 10:01] LABS: Basophils # (A) 0.1 k/uL (0-0.2); Basophils % (A) 1 %; Eosinophils # (A) 0.2 k/uL (0-0.7); Eosinophils % (A) 2 %; HCT 41.3 % (39.0-53.0); HGB 13.8 gm/dL (13.0-17.5); Lymphocytes # (A) 1.7 k/uL (1.0-4.8); Lymphocytes % (A) 14 %; MCH 31.2 pg (25.0-35.0); MCHC 33.4 g/dL (31.0-37.0); MCV 93.4 fL (80.0-100.0); Monocytes # (A) 0.5 k/uL (0-1.0); Monocytes % (A) 4 %; Neutrophils # (A) 9.7 k/uL (1.3-7.7); Neutrophils % (A) 79 %; Platelet Count 544 k/uL (150-450); RBC 4.42 m/uL (4.30-5.90); RDW 13.3 % (11.5-15.5); WBC 12.3 k/uL (3.8-10.6)
--- NOTE | 2021-01-01 10:10 | XR ---
EXAMINATION TYPE: XR chest 2V DATE OF EXAM: 01/01/2021 COMPARISON: Chest x-ray June 03, 2019 HISTORY: History of COPD with chest pain and shortness of breath TECHNIQUE: Frontal and lateral views of the chest are obtained. FINDINGS: There is background chronic emphysematous and parenchymal change without suspicious focal air space opacity, pleural effusion, or pneumothorax seen. The cardiac silhouette size remains enlar ged. The osseous structures are intact. IMPRESSION: Cardiomegaly and chronic emphysematous change without acute pulmonary process. No signif icant change from prior.
[2021-01-01 10:11] LABS: ALT 24 U/L (4-49); AST 24 U/L (17-59); African American GFR (CKD) >90 (>60 ml/min/1.73 sqM); Albumin 4.2 g/dL (3.5-5.0); Alkaline Phosphatase 114 U/L (38-126); Anion Gap 8 mmol/L; Blood Urea Nitrogen 20 mg/dL (9-20); Calcium 9.5 mg/dL (8.4-10.2); Carbon Dioxide 28 mmol/L (22-30); Chloride 97 mmol/L (98-107); Creatine Kinase 68 U/L (55-170); Glucose 124 mg/dL (74-99); INR 0.9 (<1.2); Lipase 36 U/L (23-300); Magnesium 1.8 mg/dL (1.6-2.3); Non-African American GFR(CKD) >90 (>60 ml/min/1.73 sqM); Potassium 3.5 mmol/L (3.5-5.1); Prothrombin Time 9.4 sec (9.0-12.0); Sodium 133 mmol/L (137-145); Total Bilirubin 0.4 mg/dL (0.2-1.3); Total Protein 6.9 g/dL (6.3-8.2)
[2021-01-01 10:22] LABS: D-Dimer 2.35 mg/L FEU (<0.60)
--- NOTE | 2021-01-01 11:42 | CT ---
CT CHEST FOR PULMONARY EMBOLISM. EXAMINATION TYPE: CT angio chest DATE OF EXAM: 01/01/2021 INDICATION: elevated ddimer, chest pain, fatigue CT DLP: 488.9 mGycm, Automated exposure control for dose reduction was used. CONTRAST: Patient injected with 100 mL of Isovue 370. COMPARISON: TECHNIQUE: CT of the chest is performed on a spiral scan at 2 mm thick sections. Study is performed with intravenous contrast timed for evaluation for pulmonary embolism. This will limit additional po rtions of the evaluation. 3-D MIP images reconstructed by the technologist are reviewed on the compu ter in the coronal and sagittal planes. FINDINGS: No persistent filling defects are evident to suggest an acute pulmonary embolism. Reflux into the dis breann inferior vena cava is present suggesting some right heart strain. No mediastinal or hilar adenopathy enlarged by CT criteria is evident. The ascending aorta diameter at the level of the main pulmonary artery is 3.6 cm. The main pulmonary artery diameter at the bifur cation is 3.3 cm. Small pericardial effusion is present. Lung windows are clear. Emphysematous changes are present. Limited CT section through the upper abdomen are unremarkable. IMPRESSIONS: 1. No acute pulmonary embolism. 2. There are some changes compatible with right heart strain. 3. Emphysematous changes. 4. Small pericardial effusion.
[2021-01-01] MEDS ORDERED: HEPARIN SODIUM 1,000 UN/ML (10ML VL) IV ONE ×2 (12:58→20:05)
[2021-01-01] MEDS ORDERED: NITROGLYCERIN SL TABS 0.4 MG TAB SUBLINGUAL PRN (12:58)
[2021-01-01] MEDS: HEPARIN SOD,PORK IN 0.45% NACL 25,000 UNIT in 0.45% NACL 1 250ML.BAG IV SCH (13:30)
[2021-01-01] MEDS: SODIUM CHLORIDE 0.9% 1,000 ML IV SCH (13:35)
[2021-01-01] MEDS: GABAPENTIN 300 MG CAP PO SCH ×2 (16:11→20:25)
[2021-01-01] MEDS: HYDROcodone/APAP 10-325MG 1 EACH TAB PO PRN (16:12)
[2021-01-01] MEDS ORDERED: HEPARIN SOD,PORK IN 0.45% NACL 25,000 UNIT in 0.45% NACL 1 250ML.BAG IV SCH (20:15)
[2021-01-01] MEDS: HEPARIN SODIUM 1,000 UN/ML (10ML VL) IV PRN (20:25)
[2021-01-01] MEDS: CYCLOBENZAPRINE 10 MG TAB PO PRN (20:36)
[2021-01-01 21:08] LABS: Basophils # (A) 0.1 k/uL (0-0.2); Basophils % (A) 1 %; Eosinophils # (A) 0.2 k/uL (0-0.7); Eosinophils % (A) 2 %; HCT 40.1 % (39.0-53.0); HGB 13.8 gm/dL (13.0-17.5); Lymphocytes # (A) 1.9 k/uL (1.0-4.8); Lymphocytes % (A) 19 %; MCH 32.2 pg (25.0-35.0); MCHC 34.4 g/dL (31.0-37.0); MCV 93.7 fL (80.0-100.0); Mean Platelet Volume 6.1; Monocytes # (A) 0.5 k/uL (0-1.0); Monocytes % (A) 5 %; Neutrophils # (A) 7.4 k/uL (1.3-7.7); Neutrophils % (A) 73 %; Platelet Count 499 k/uL (150-450); RBC 4.28 m/uL (4.30-5.90); RDW 13.3 % (11.5-15.5); WBC 10.2 k/uL (3.8-10.6)
[2021-01-01 21:14] LABS: INR 0.9 (<1.2); Partial Thromboplastin Time 56.9 sec (22.0-30.0)
--- NOTE | 2021-01-02 00:35 | P.HPIM ---
History of Present Illness H&P Date: 01/01/21 Chief Complaint: Chest Pain Patient is a 60-year-old male with a known history of COPD, hypertension, osteoarthritis, hearing disorder/deafness, chronic low back pain due to h erniated disks, history of gout and currently everyday smoker presents to ER with complaints of exertional dyspnea, intermittent chest pains and weakness. Patient states that he has been having shortness of breath and exertional dyspnea for the past 3 months which is getting worse and recently started having intermittent sharp chest pains mainly in the left retrosternal region. Patient states that this morning he was having chest pain and also achy feeling in the left arm along with the pain. Patient also felt very weak and increased short of breath. No headache or dizziness or lightheadedness. No diaphoresis. Patient also having increasing leg swelling right more than left. Patient says that he will always have cough due to his COPD. No recent change or increase sputum production. No fever no chills. No recent illnesses. EKG showed atrial fibrillation with rapid ventricular response. Chest x-ray showed cardiomegaly and chronic emphysematous change without acute pulmonary process. No significant change from prior. D-dimer is elevated at 2.35. Troponin x3 - and proBNP is 976 Coronavirus PCR not detected. WBC 12.5 hemoglobin 13.8 and platelets 544 sodium 133 potassium 3.5 chloride 97 BUN [address] angiogram of the chest showed no acute pulmonary embolism. There are some changes compatible with right heart strain. Review of Systems Constitutional: Patient denies any fever or chills . No generalized weakness or weight loss. Abdomen: Patient denied nausea vomiting and diarrhea and abdominal pain. Cardiovascular: Patient does have intermittent chest pains and shortness of breath. No palpitations. Increasing leg swelling. Respiratory: . Does have shortness of breath and exertional dyspnea. Cough without sputum production Neurologic: Patient denied any numbness or tingling headache. Musculoskeletal: Patient denies any complaints of joint swelling or deformity. Skin: Negative Psychiatric: Negative Endocrine: No heat or cold intolerance. No recent weight gain. Genitourinary: No dysuria or hematuria. All other 14 point ROS negative except the above Past Medical History Past Medical History: COPD, Hearing Disorder / Deafness, Hypertension, Musculoskeletal Disorder, Osteoarthritis (OA), Pneumonia Additional Past Medical History / Comment(s): Chronic low back pain/DDD/herniated discs-Pt sees Dr. Domínguez, fractured C7 at age 18 yrs, bronchitis, renal failure 2 yrs ago, bilateral torn rotator cuffs, bilateral carpal tunnel syndrome, past vertigo. History of Any Multi-Drug Resistant Organisms: None Reported Past Surgical History: Joint Replacement, Orthopedic Surgery Additional Past Surgical History / Comment(s): Arthroscopy R knee/total R knee. Past Anesthesia/Blood Transfusion Reactions: No Reported Reaction Additional Past Anesthesia/Blood Transfusion Reaction / Comment(s): Pt has clausterphobia Smoking Status: Current every day smoker - Past Family History Mother History Unknown: Yes Family Medical History: No Reported History Father History Unknown: Yes Medications and Allergies Home Medications Medication Instructions Recorded Confirmed Type Chlorthalidone 25 mg PO DAILY 05/23/19 01/01/21 History allopurinoL [Zyloprim] 100 mg PO DAILY 05/23/19 01/01/21 History amLODIPine [Norvasc] 10 mg PO DAILY 05/23/19 01/01/21 History Cyclobenzaprine [Flexeril] 10 mg PO TID PRN 01/01/21 01/01/21 History Gabapentin 600 mg PO TID 01/01/21 01/01/21 History HYDROcodone/APAP 10-325MG [[place] 1 tab PO TID PRN 01/01/21 01/01/21 History 10-325] Tiotropium Br/Olodaterol HCl 2 spray INHALATION RT-DAILY 01/01/21 01/01/21 History [Stiolto Respimat Inhal [place]] Allergies Allergy/AdvReac Type Severity Reaction Status Date / Time No Known Allergies Allergy Verified 01/01/21 10:12 Physical Exam Vitals: Vital Signs Temp Pulse Pulse Resp BP Pulse Ox 01/01/21 11:45 98.3 F 86 17 116/77 93 L 01/01/21 10:15 118 H 20 119/71 93 L 01/01/21 09:34 99 01/01/21 09:21 98.1 F 124 H 18 116/83 92 L Intake and Output 01/01/21 01/01/21 01/01/21 06:59 14:59 22:59 Other: Weight 90.718 kg PHYSICAL EXAMINATION: Patient is lying in the bed comfortably, no acute distress, awake alert and oriented.. HEENT: Normocephalic. Neck is supple. Pupils reactive. Nostrils clear. Oral cavity is moist. Ears reveal no drainage. Neck reveals no JVD, carotid bruits, or thyromegaly. CHEST EXAMINATION: Trachea is central. Symmetrical expansion. Bibasilar diminished sounds and minimal expiratory wheeze.. CARDIAC: Normal S1, S2 with no gallops. No murmurs ABDOMEN: Soft. Bowel sounds normal. No organomegaly. No abdominal bruits. Extremities: Bilateral lower extremity Dopplers pitting edema. Right slightly greater than left.. No clubbing or cyanosis Neurologically awake, alert, oriented x3 with well-coordinated movements. No focal deficits noted Skin: No rash or skin lesions. Psychiatric: Coperative. Nonsuicidal Musculoskeletal: No joint swelling or deformity. Normal range of motion. Results CBC & Chem 7: 01/01/21 20:33 01/01/21 09:46 Labs: Abnormal Lab Results - Last 24 Hours (Table) 01/01/21 01/01/21 01/01/21 Range/Units 09:46 09:46 09:46 WBC 12.3 H (3.8-10.6) k/uL Plt Count 544 H (150-450) k/uL Neutrophils # 9.7 H (1.3-7.7) k/uL D-Dimer 2.35 H (<0.60) mg/L FEU Sodium 133 L (137-145) mmol/L Chloride 97 L (98-107) mmol/L Glucose 124 H (74-99) mg/dL Thrombosis Risk Factor Assmnt - DVT/VTE Prophylaxis DVT/VTE Prophylaxis: Pharmacologic Prophylaxis ordered - Choose All That Apply Any of the Below Risk Factors Present?: Yes Each Factor Represents 1 point: Abnormal pulmonary function (COPD), Obesity (BMI >25) Other Risk Factors: Yes Each Risk Factor Represents 2 Points: Age 61-74 years Other congenital or acquired thrombophilia - If yes, enter type in comment: No Thrombosis Risk Factor Assessment Total Risk Factor Score: 4 Thrombosis Risk Factor Assessment Level: Moderate Risk Assessment and Plan Assessment: Atrial fibrillation with rapid ventricular rate. Possible unstable angina Intermittent chest pain and exertional dyspnea Elevated D-dimer level. CTA chest negative for PE. COPD Ongoing nicotine addiction Osteoarthritis Chronic low back pain due to herniated disc and follow-up with neurology. Hearing disorder/deafness. History of gout. Plan: Patient will be continued on telemetry monitoring. Troponin x3 -. CT angiogram was done due to elevated D-dimer level which is negative for PE. Right lower extremity duplex scan was ordered due to swelling greater than left. Patient will be continued heparin drip. 2D echocardiogram will be ordered and cardiology was consulted. Heart rate is controlled at this time. Continue with aspirin and lipid panel was ordered. Continue with breathing treatments as needed. Continue pain management and further recommendations based on the clinical course. Time with Patient: Greater than 30
[2021-01-02] MEDS: HEPARIN SODIUM 1,000 UN/ML (10ML VL) IV PRN ×2 (03:33→20:46)
[2021-01-02] MEDS: FORMOTEROL FUMARATE 20 MCG/2 ML NEBU INHALATION SCH ×2 (07:31→19:54)
[2021-01-02] MEDS: IPRATROPIUM 0.5 MG/2.5 ML NEBU INHALATION SCH ×4 (07:31→19:54)
[2021-01-02] MEDS: CYCLOBENZAPRINE 10 MG TAB PO PRN ×3 (07:40→22:42)
[2021-01-02] MEDS: HYDROcodone/APAP 10-325MG 1 EACH TAB PO PRN ×3 (07:40→22:42)
[2021-01-02] MEDS: allopurinoL 100 MG TAB PO SCH (07:40)
[2021-01-02] MEDS: GABAPENTIN 300 MG CAP PO SCH ×3 (07:40→22:42)
--- NOTE | 2021-01-02 07:50 | US ---
EXAMINATION TYPE: US venous doppler duplex LE RT DATE OF EXAM: 01/02/2021 7:15 AM COMPARISON: NONE CLINICAL HISTORY: R>L swelling. right leg edema SIDE PERFORMED: right TECHNIQUE: The lower extremity deep venous system is examined utilizing real time linear array sonog wilner with graded compression, doppler sonography and color-flow sonography. VESSELS IMAGED: Common Femoral Vein Deep Femoral Vein Greater Saphenous Vein * Femoral Vein Popliteal Vein Small Saphenous Vein * Proximal Calf Veins (* superficial vessels) Right Leg: no evidence of DVT IMPRESSION: MR right lower extremity ultrasound negative for deep venous thrombosis.
[2021-01-02] MEDS ORDERED: NON FORMULARY DRUG (Tiotropium Br/Olodaterol Hcl [Stiolto Respimat Inhal Spray] 4 GM Mist. INHALATION SCH (08:00)
[2021-01-02] MEDS: FUROSEMIDE 10 MG/ML 4 ML VIAL IV SCH ×2 (08:52→22:11)
[2021-01-02] MEDS: METOPROLOL TARTRATE 25 MG TAB PO SCH ×2 (08:52→22:11)
[2021-01-02] MEDS ORDERED: ASPIRIN 325 MG TAB PO SCH (09:00)
[2021-01-02] MEDS ORDERED: CHLORTHALIDONE 25 MG TAB PO SCH (09:00)
[2021-01-02 10:00] LABS: Basophils # (A) 0.08 X 10*3/uL (0.00-0.10); Basophils % (A) 0.8 %; Eosinophils # (A) 0.19 X 10*3/uL (0.04-0.35); Eosinophils % (A) 1.8 %; HCT 41.8 % (39.6-50.0); HGB 13.7 g/dL (13.0-17.0); Lymphocytes # (A) 1.91 X 10*3/uL (0.90-5.00); MCH 31.4 pg (27.0-32.0); MCHC 32.8 g/dL (32.0-37.0); MCV 95.9 fL (80.0-97.0); Mean Platelet Volume 8.4 fL (9.5-12.2); Monocytes # (A) 0.79 X 10*3/uL (0.20-1.00); Monocytes % (A) 7.4 %; Neutrophils # (A) 7.59 X 10*3/uL (1.80-7.70); Neutrophils % (A) 71.4 %; Platelet Count 467 X 10*3/uL (140-440); RBC 4.36 X 10*6/uL (4.40-5.60); RDW 13.2 % (11.5-14.5); WBC 10.62 X 10*3/uL (4.50-10.00)
[2021-01-02 10:11] LABS: INR 0.93 (0.90-1.11); Prothrombin Time 10.2 sec (9.9-11.9)
--- NOTE | 2021-01-02 11:08 | P.CRDCN ---
History of Present Illness History of present illness: HISTORY OF PRESENTING ILLNESS This is a pleasant 60-year-old male past medical history significant for hypertension, COPD, chronic back discomfort and chronic nicotine dependence. 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 We have been asked to see in consultation for chest pain. He presented to the hospital with symptoms of exertional shortness of breath for the last 3-4 months that has been getting progressively worse. Then a couple of days ago he started having sharp pains in the left precordial region prompting him to come to the hospital for further evaluation. He states the pain in the chest is extremely sharp and stabbing in nature and intense when it happens. He then leaves an achy sensation in the left shoulder and down the left arm. He also has noticed some increased swelling of the right lower extremity in the past couple of days. On arrival to the emergency department EKG obtained reveals atrial fibrillation with rapid ventricular rate. The patient denies prior history of this diagnosis. He was initiated on a heparin infusion and placed on the observation unit. He is seen and examined sitting up in no acute distress. He is mildly tachypneic with conversation. He denies significant orthopnea or PND. Telemetry tracings reveal ongoing atrial fibrillation with mostly controlled ventricular rates between 90-110. Chest x- ray reveals chronic episode manic changes. CTA is negative for pulmonary embolism, reflux into the distal IVC noted, emphysematous changes present and a small pericardial effusion. Right lower extremity Doppler negative for DVT. Laboratory data reviewed, WBC on admission 12.3 repeat today 10.6, hemoglobin 13.7, platelets 467, d-dimer 2.35, cardiac enzymes negative 3, sodium 133, potassium 3.5, creatinine 0.87, NT proBNP 976 and magnesium 1.8 REVIEW OF SYSTEMS At the time of my exam: CONSTITUTIONAL: Denies fever or chills. CARDIOVASCULAR: Complains of shortness of breath. Denies chest pain, orthopnea, PND or palpitations. RESPIRATORY: Denies cough. GASTROINTESTINAL: Denies abdominal pain, diarrhea, constipation, nausea or vomiting. MUSCULOSKELETAL: Denies myalgias. NEUROLOGIC: Denies numbness, tingling, headacbe or weakness. ENDOCRINE: Denies fatigue, weight change, polydipsia or polyurina. GENITOURINARY: Denies burning, hematuria or urgency with micturation. HEMATOLOGIC: Denies history of anemia or bleeding. PHYSICAL EXAMINATION Blood pressure 137/87 heart rate 95 afebrile and maintaining oxygen saturation on nasal cannula. CONSTITUTIONAL: No apparent distress. HEENT: Head is normocephalic. Pupils are equal, round. Sclerae anicteric. Mucous membranes of the mouth are moist. No JVD. No carotid bruit. CHEST EXAMINATION: 5 basilar rales, expiratory wheezes, no rhonchi. No chest wall tenderness is noted on palpation or with deep breathing. HEART EXAMINATION: Irregular rate and rhythm. S1, S2 heard. No murmurs, gallops or rub. Distant heart sounds. ABDOMEN: Soft, nontender. Positive bowel sounds. EXTREMITIES: 2+ peripheral pulses, right lower extremity 1+ pitting edema, no left lower extremity edema and no calf tenderness. NEUROLOGIC EXAMINATION: Patient is awake, alert and oriented x3. ASSESSMENT Acute heart failure, unknown type New-onset paroxysmal atrial fibrillation with rapid ventricular rate Hypertension COPD Chronic nicotine dependence PLAN An acute coronary event has been ruled out. Chest pain could be due to new onset afib with atypical features of the pain. Obtain 2-D echocardiogram and Doppler study to assess cardiac structure and function. Check TSH and reflex T4 T3. Initiate IV diuretics, Lasix 40 mg twice a day. Initiate metoprolol 25 mg twice a day for rate control. Continue heparin infusion pending echo findings. Follow renal function and electrolytes in the morning. Documented accurate intake and output along with daily weights. Smoking cessation highly recommended. Further recommendations to follow based upon clinical course. Thank you kindly for this consultation. Nurse Practitioner note has been reviewed, I agree with a documented findings and plan of care. Patient was seen and examined. Past Medical History Past Medical History: COPD, Hearing Disorder / Deafness, Hypertension, Musculoskeletal Disorder, Osteoarthritis (OA), Pneumonia Additional Past Medical History / Comment(s): Chronic low back p ain/DDD/herniated discs-Pt sees Dr. Domínguez, fractured C7 at age 18 yrs, bronchitis, renal failure 2 yrs ago, bilateral torn rotator cuffs, bilateral carpal tunnel syndrome, past vertigo. History of Any Multi-Drug Resistant Organisms: None Reported Past Surgical History: Joint Replacement, Orthopedic Surgery Additional Past Surgical History / Comment(s): Arthroscopy R knee/total R knee. Past Anesthesia/Blood Transfusion Reactions: No Reported Reaction Additional Past Anesthesia/Blood Transfusion Reaction / Comment(s): Pt has clausterphobia Smoking Status: Current every day smoker - Past Family History Mother History Unknown: Yes Family Medical History: No Reported History Father History Unknown: Yes Medications and Allergies Home Medications Medication Instructions Recorded Confirmed Type Chlorthalidone 25 mg PO DAILY 05/23/19 01/01/21 History allopurinoL [Zyloprim] 100 mg PO DAILY 05/23/19 01/01/21 History amLODIPine [Norvasc] 10 mg PO DAILY 05/23/19 01/01/21 History Cyclobenzaprine [Flexeril] 10 mg PO TID PRN 01/01/21 01/01/21 History Gabapentin 600 mg PO TID 01/01/21 01/01/21 History HYDROcodone/APAP 10-325MG [[place] 1 tab PO TID PRN 01/01/21 01/01/21 History 10-325] Tiotropium Br/Olodaterol HCl 2 spray INHALATION RT-DAILY 01/01/21 01/01/21 History [Stiolto Respimat Inhal [place]] Allergies Allergy/AdvReac Type Severity Reaction Status Date / Time No Known Allergies Allergy Verified 01/01/21 10:12 Physical Exam Vitals: Vital Signs Temp Pulse Pulse Resp BP BP Pulse Ox 01/02/21 07:45 95 01/02/21 07:43 73 16 01/02/21 07:39 91 01/02/21 07:38 91 01/02/21 07:32 85 95 01/02/21 07:00 97.7 F 90 20 137/87 93 L 01/02/21 02:00 99.0 F 73 16 120/73 95 01/02/21 00:17 16 01/01/21 20:00 16 01/01/21 19:20 97.8 F 85 16 100/65 92 L 01/01/21 17:48 97.8 F 87 16 105/57 95 01/01/21 17:47 18 01/01/21 17:00 98.2 F 87 18 124/79 98 01/01/21 16:05 87 18 108/69 96 01/01/21 13:00 92 18 111/75 98 01/01/21 11:45 98.3 F 86 17 116/77 93 L 01/01/21 10:15 118 H 20 119/71 93 L Intake and Output 01/01/21 01/02/21 01/02/21 22:59 06:59 14:59 Intake Total 388.855 91.024 118 Balance 388.855 91.024 118 Intake: IV 80 Sodium Chloride 0.9% 1, 80 000 ml @ 20 mls/hr IV . Q24H [facility] Rx#:[id number] Intake, IV Titration 68.855 91.024 Amount Heparin Sod,Pork in 0.45% 68.855 91.024 NaCl 25,000 unit In 0.45 % NaCl 1 250ml.bag @ 11 UNITS/KG/HR 9.979 mls/hr IV .Q24H [facility] Rx#: [id number] Oral 240 118 Other: Voiding Method Toilet Toilet Toilet # Voids 2 2 2 Results 01/02/21 06:54 01/01/21 09:46 Cardiac Enzymes 01/01/21 01/01/21 01/01/21 Range/Units 09:46 13:15 16:21 Troponin I <0.012 <0.012 <0.012 (0.000-0.034) ng/mL Coagulation 01/01/21 01/01/21 01/01/21 Range/Units 09:46 19:13 20:33 PT 9.4 10.0 (9.0-12.0) sec APTT 25.0 26.5 56.9 H (22.0-30.0) sec 01/02/21 01/02/21 Range/Units 01:30 06:54 PT 10.2 (9.0-12.0) sec APTT 31.5 H (22.0-30.0) sec CBC 01/01/21 01/02/21 Range/Units 20:33 06:54 WBC 10.2 10.62 H (3.8-10.6) k/uL RBC 4.28 L 4.36 L (4.30-5.90) m/uL Hgb 13.8 13.7 (13.0-17.5) gm/dL Hct 40.1 41.8 (39.0-53.0) % Plt Count 499 H 467 H (150-450) k/uL Current Medications Generic Name Dose Route Start Last Admin Trade Name Freq PRN Reason Stop Dose Admin Hydrocodone Bitart/Acetaminophen 1 each 01/01/21 13:00 01/02/21 07:40 Hydrocodone/Apap 10-325mg 1 Each Tab PO 1 each TID PRN Administration Pain Allopurinol 100 mg 01/02/21 09:00 01/02/21 07:40 Allopurinol 100 Mg Tab PO 100 mg DAILY [facility] Administration Aspirin 325 mg 01/02/21 09:00 01/02/21 07:40 Aspirin 325 Mg Tab PO 325 mg DAILY [facility] Administration Cyclobenzaprine HCl 10 mg 01/01/21 13:00 01/02/21 07:40 Cyclobenzaprine 10 Mg Tab PO 10 mg TID PRN Administration Muscle Spasm Formoterol Fumarate 20 mcg 01/02/21 08:00 01/02/21 07:31 Formoterol Fumarate 20 Mcg/2 Ml Nebu INHALATION 20 mcg RT-BID [facility] Administration Furosemide 40 mg 01/02/21 09:00 01/02/21 08:52 Furosemide 10 Mg/Ml 4 Ml Vial IV 40 mg Q12HR [facility] Administration Gabapentin 600 mg 01/01/21 16:00 01/02/21 07:40 Gabapentin 300 Mg Cap PO 600 mg TID [facility] Administration Heparin Sodium (Porcine) 0 unit 01/01/21 20:05 01/02/21 03:33 Heparin Sodium 1,000 Un/Ml (10ml Vl) IV 4,000 unit PER PROTOCOL PRN Administration Low PTT Protocol Sodium Chloride 1,000 mls @ 20 mls/hr 01/01/21 13:00 01/01/21 13:35 Saline 0.9% IV 20 mls/hr .Q24H [facility] Administration Heparin Sodium/Sodium Chloride 250 mls @ 9.979 mls/hr 01/01/21 13:00 01/02/21 03:34 25,000 unit/ Sodium Chloride IV 17 units/kg/hr .Q24H [facility] 15.422 mls/hr Titration Protocol 11 UNITS/KG/HR Ipratropium [place] 0.5 mg 01/02/21 08:00 01/02/21 07:31 Ipratropium 0.5 Mg/2.5 Ml Nebu INHALATION 0.5 mg RT-QID [facility] Administration Metoprolol Tartrate 25 mg 01/02/21 09:00 01/02/21 08:52 Metoprolol Tartrate 25 Mg Tab PO 25 mg BID [facility] Administration Nitroglycerin 0.4 mg 01/01/21 12:58 Nitroglycerin Sl Tabs 0.4 Mg Tab SUBLINGUAL Q5M PRN Chest Pain Intake and Output 01/01/21 01/02/21 01/02/21 22:59 06:59 14:59 Intake Total 388.855 91.024 118 Balance 388.855 91.024 118 Intake: IV 80 Sodium Chloride 0.9% 1, 80 000 ml @ 20 mls/hr IV . Q24H [facility] Rx#:[id number] Intake, IV Titration 68.855 91.024 Amount Heparin Sod,Pork in 0.45% 68.855 91.024 NaCl 25,000 unit In 0.45 % NaCl 1 250ml.bag @ 11 UNITS/KG/HR 9.979 mls/hr IV .Q24H [facility] Rx#: [id number] Oral 240 118 Other: Voiding Method Toilet Toilet Toilet # Voids 2 2 2 01/02/21 06:54 01/01/21 09:46
[2021-01-02] MEDS: HEPARIN SOD,PORK IN 0.45% NACL 25,000 UNIT in 0.45% NACL 1 250ML.BAG IV SCH ×2 (11:58→23:23)
--- NOTE | 2021-01-02 12:01 | ECHOF ---
Referral Reason:afib MEASUREMENTS -------- HEIGHT: 175.3 cm WEIGHT: 90.7 kg BP: RVIDd: 3.5 cm (< 3.3) IVSd: 1.3 cm (0.6 - 1.1) LVIDd: 3.7 cm (3.9 - 5.3) LVPWd: 1.2 cm (0.6 - 1.1) IVSs: 1.9 cm LVIDs: 2.5 cm LVPWs: 2.1 cm Ao Diam: 3.6 cm (2.0 - 3.7) AV Cusp: 2.1 cm (1.5 - 2.6) LA Diam: 2.9 cm (2.7 - 3.8) RAP: 5.00 mmHg RVSP: 11.77 mmHg FINDINGS -------- Atrial fibrillation. This was a technically difficult study with suboptimal views. The left ventricular size is normal. There is mild concentric left ventricular hypertrophy. Overa ll left ventricular systolic function is low-normal with, an EF between 50 - 55 %. The right ventricle is mildly enlarged. The left atrial size is normal. The right atrial size is normal. 5.0mg of Lumason was utilized for enhancement of images The aortic valve is trileaflet and appears structurally normal. The mitral valve is normal. There is trace mitral regurgitation. The tricuspid valve appears structurally normal. Trace tricuspid regurgitation present. Right rahul tricular systolic pressure is normal at < 35 mmHg. There is no pulmonic regurgitation present. The aortic root size is normal. IVC Not well visulized. There is no pericardial effusion. CONCLUSIONS -------- 1. The left ventricular size is normal. 2. There is mild concentric left ventricular hypertrophy. 3. Overall left ventricular systolic function is low-normal with, an EF between 50 - 55 %. 4. The right ventricle is mildly enlarged. 5. There is trace mitral regurgitation. 6. Trace tricuspid regurgitation present. 7. There is no pericardial effusion. SOIL SURVEYOR: Izabel Garber RDCS
[2021-01-02 14:33] LABS: African American GFR (CKD) 117.2 (60.0-200.0); BUN/Creat Ratio 27.14 Ratio (12.00-20.00); Calcium 9.1 mg/dL (8.7-10.3); Chol/HDL Ratio 4.49; LDL Cholesterol,Calculated 97.8 mg/dL (0.0-131.0); Non-African American GFR(CKD) 101.1 (60.0-200.0); Potassium 3.9 mmol/L (3.5-5.5); VLDL Calculation 24.2 mg/dL (5.00-40.00)
--- NOTE | 2021-01-02 15:30 | P.PN ---
Subjective Principal diagnosis: Patient is a 60-year-old male with a known history of COPD, hypertension, osteoarthritis, hearing disorder/deafness, chronic low back pain due to herniated disks, history of gout and currently everyday smoker presents to ER with complaints of exertional dyspnea, intermittent chest pains and weakness. Patient states that he has been having shortness of breath and exertional dyspnea for the past 3 months which is getting worse and recently started having intermittent sharp chest pains mainly in the left retrosternal region. Patient states that this morning he was having chest pain and also achy feeling in the left arm along with the pain. Patient also felt very weak and increased short of breath. No headache or dizziness or lightheadedness. No diaphoresis. Patient also having increasing leg swelling right more than left. Patient says that he will always have cough due to his COPD. No recent change or increase sputum production. No fever no chills. No recent illnesses. EKG showed atrial fibrillation with rapid ventricular response. Chest x-ray showed cardiomegaly and chronic emphysematous change without acute pulmonary process. No significant change from prior. D-dimer is elevated at 2.35. Troponin x3 - and proBNP is 976 Coronavirus PCR not detected. WBC 12.5 hemoglobin 13.8 and platelets 544 sodium 133 potassium 3.5 chloride 97 BUN [address] angiogram of the chest showed no acute pulmonary embolism. There are some changes compatible with right heart strain. 01/02/2021 Patient is seen and evaluated and follow-up currently continues on 3 L of oxygen via nasal cannula. Patient states he does not normally wear any oxygen in the outpatient setting and is a smoker but has cut down drastically due to his new living situation of not being able to smoke in his apartment. He continues to have shortness of breath with exertion and states he felt short of breath while walking to the bathroom and back on room air. Patient denies any dizziness or lightheadedness or feelings of passing out. Patient denies any chest pain or palpitations at this time. Cardiology following and patient is on IV Lasix twice daily and will continue. Patient underwent 2-D echo showing mild concentric left ventricular hypertrophy with overall LV systolic function is low to normal with an EF of 50-55% with a trace of mitral and tricuspid regurgitation present along with the right ventricle being mildly enlarged. Patient continues to be in A. fib and being started on metoprolol and will continue to hold Norvasc and chlorthalidone for now. TONIA with IV Lasix twice daily. Cholesterol panel within normal limits. BMP within normal limits. IV heparin has been discontinued. Review of systems: Constitutional: No reports of fatigue, fever, or chills Cardiovascular: No reports of chest pain or palpitations Respiratory: Reports intermittent shortness of breath with exertion GI: No reports of nausea, vomiting, or diarrhea : No reports of dysuria or retention Neurovascular: No reports of weakness or numbness All medications have been reviewed Objective - Vital Signs Vital signs: Vital Signs Temp 97.7 F 01/02/21 07:00 Pulse 95 01/02/21 07:45 Resp 16 01/02/21 07:43 BP 137/87 01/02/21 07:00 Pulse Ox 95 01/02/21 07:32 Intake & Output 01/01/21 01/02/21 01/02/21 18:59 06:59 18:59 Intake Total 320 159.879 118 Balance 320 159.879 118 Weight 90.718 kg Intake: IV 80 Sodium Chloride 0.9% 1, 80 000 ml @ 20 mls/hr IV . Q24H DANIAL Rx#:[id number] Intake, IV Titration 159.879 Amount Heparin Sod,Pork in 0.45% 159.879 NaCl 25,000 unit In 0.45 % NaCl 1 250ml.bag @ 11 UNITS/KG/HR 9.979 mls/hr IV .Q24H DANIAL Rx#: [id number] Oral 240 118 Other: Voiding Method Toilet Toilet # Voids 2 2 - Exam Patient is sitting up in the chair comfortably, no acute distress, awake alert and oriented. HEENT: Normocephalic. Neck is supple. Pupils reactive. Nostrils clear. Oral cavity is moist. Ears reveal no drainage. Neck reveals no JVD, carotid bruits, or thyromegaly. CHEST EXAMINATION: Trachea is central. Symmetrical expansion. Bibasilar dim inished sounds and minimal expiratory wheeze.. CARDIAC: S1, S2 muffled ABDOMEN: Soft. Bowel sounds normal. No organomegaly. No abdominal bruits. Extremities: Bilateral lower extremity Dopplers pitting edema. Right slightly greater than left.. No clubbing or cyanosis Neurologically awake, alert, oriented x3 with well-coordinated movements. No focal deficits noted Skin: No rash or skin lesions. Psychiatric: Cooperative. Non-suicidal Musculoskeletal: No joint swelling or deformity. Normal range of motion. - Labs CBC & Chem 7: 01/02/21 06:54 01/02/21 06:54 Labs: Abnormal Lab Results - Last 24 Hours (Table) 01/01/21 01/01/21 01/01/21 Range/Units 09:46 09:46 09:46 WBC 12.3 H (3.8-10.6) k/uL RBC (4.30-5.90) m/uL Plt Count 544 H (150-450) k/uL Neutrophils # 9.7 H (1.3-7.7) k/uL APTT (22.0-30.0) sec D-Dimer 2.35 H (<0.60) mg/L FEU Sodium 133 L (137-145) mmol/L Chloride 97 L (98-107) mmol/L Glucose 124 H (74-99) mg/dL 01/01/21 01/01/21 01/02/21 Range/Units 20:33 20:33 01:30 WBC (3.8-10.6) k/uL RBC 4.28 L (4.30-5.90) m/uL Plt Count 499 H (150-450) k/uL Neutrophils # (1.3-7.7) k/uL APTT 56.9 H 31.5 H (22.0-30.0) sec D-Dimer (<0.60) mg/L FEU Sodium (137-145) mmol/L Chloride (98-107) mmol/L Glucose (74-99) mg/dL Assessment and Plan Assessment: Atrial fibrillation with rapid ventricular rate, currently rate controlled Possible unstable angina Intermittent chest pain and exertional dyspnea Elevated D-dimer level. CTA chest negative for PE. COPD Ongoing nicotine addiction Osteoarthritis Chronic low back pain due to herniated disc and follow-up with neurology. Hearing disorder/deafness. History of gout. Plan: Patient will be continued on telemetry monitoring. Cardiology following and patient is placed on IV Lasix twice daily and will continue. Patient is atrial fibrillation and started on metoprolol and rate controlled at this time. Will hold amlodipine and chlorthalidone at this time. Patient underwent venous Doppler of the right lower extremity which was negative for DVT. IV heparin infusion has been discontinued and will continue with aspirin and will discuss with cardiology about anticoagulation. Patient underwent 2-D echo as mentioned previously. Lipid panel was within normal limits. Repeat a.m. labs and continue to monitor kidney functions along with electrolytes as patient is on IV Lasix. Patient continues to have intermittent periods of shortness of breath with exertion and was using 3 L and discuss with patient along with nursing staff about weaning FiO2 as tolerated as he does not normally wear oxygen in the outpatient setting and patient is currently 93% on room air and will continue to monitor closely. Supplemental oxygen as needed. Continue pain management and further recommendations based on the clinical course of the patient. Possible discharge in 24-48 hours.
[2021-01-02] MEDS: SODIUM CHLORIDE 0.9% 1,000 ML IV SCH (15:41)
[2021-01-03 03:37] LABS: African American GFR (CKD) >90 (>60 ml/min/1.73 sqM); Anion Gap 10 mmol/L; Blood Urea Nitrogen 27 mg/dL (9-20); Calcium 9.7 mg/dL (8.4-10.2); Carbon Dioxide 27 mmol/L (22-30); Chloride 100 mmol/L (98-107); Glucose 111 mg/dL (74-99); Non-African American GFR(CKD) >90 (>60 ml/min/1.73 sqM); Potassium 3.8 mmol/L (3.5-5.1); Sodium 137 mmol/L (137-145)
[2021-01-03] MEDS: HYDROcodone/APAP 10-325MG 1 EACH TAB PO PRN (07:26)
[2021-01-03] MEDS: CYCLOBENZAPRINE 10 MG TAB PO PRN (07:26)
[2021-01-03] MEDS: allopurinoL 100 MG TAB PO SCH (07:27)
[2021-01-03] MEDS: GABAPENTIN 300 MG CAP PO SCH (07:27)
[2021-01-03] MEDS: FUROSEMIDE 10 MG/ML 4 ML VIAL IV SCH (07:27)
[2021-01-03] MEDS: METOPROLOL TARTRATE 25 MG TAB PO SCH (07:28)
[2021-01-03 07:38] VITALS: TEMP 97.3
[2021-01-03] MEDS: FORMOTEROL FUMARATE 20 MCG/2 ML NEBU INHALATION SCH (08:06)
[2021-01-03] MEDS: IPRATROPIUM 0.5 MG/2.5 ML NEBU INHALATION SCH ×2 (08:06→11:10)
[2021-01-03 08:08] VITALS: RESP 16
[2021-01-03] MEDS ORDERED: APIXABAN 5 MG TAB PO SCH (09:00)
[2021-01-03] MEDS ORDERED: ASPIRIN 81 MG PO SCH (09:00)
[2021-01-03 11:16] VITALS: BP 114/75; PULSE 82
--- NOTE | 2021-01-03 11:37 | P.PN ---
Progress Note - Text Progress Note Date: 01/03/21 This is a very pleasant 60-year-old gentleman who was admitted to the hospital with exacerbation of heart failure with preserved ejection fraction and also he was diagnosed with new onset atrial fibrillation. He underwent an echocardiogram which revealed normal left ventricular systolic function without significant valvular abnormalities. The patient was seen this morning. He is feeling overall better. Heart rate is under good control. He will be on oral anticoagulation with Eliquis From a cardiovascular standpoint of view, the patient can be discharged home. I'm going to DC Lasix IV and start the patient on Lasix by mouth
--- NOTE | 2021-01-03 14:34 | P.DS ---
Providers Date of admission: 01/01/21 12:55 Expected date of discharge: 01/03/21 Attending physician: Kt Lima Consults: 01/01/21 12:58 Consult Physician Urgent Consulting Provider: Nora Jose Consult Reason/Comments: Chest pain Do you want consulting provider notified?: Yes Primary care physician: Charlie oGlden Hospital Course: Final diagnosis Atrial fibrillation with rapid ventricular rate, currently rate controlled, new- onset Heart failure with preserved ejection fraction, acute exacerbation Possible unstable angina Intermittent chest pain and exertional dyspnea Elevated D-dimer level. CTA chest negative for PE. COPD Ongoing nicotine addiction Osteoarthritis Chronic low back pain due to herniated disc and follow-up with neurology. Hearing disorder/deafness. History of gout. Discharge disposition Patient is being discharged in a stable condition with guarded prognosis to home. Patient will follow-up with Dr. Guerra upon discharge. Patient will also follow-up with cardiology Dr. Cortez in 2 weeks as discussed. Total time taken is greater than 35 minutes. Hospital course Patient is a 60-year-old male with a known history of COPD, hypertension, osteoarthritis, hearing disorder/deafness, chronic low back pain due to herniated disks, history of gout and currently everyday smoker presents to ER with complaints of exertional dyspnea, intermittent chest pains and weakness. Patient states that he has been having shortness of breath and exertional dyspnea for the past 3 months which is getting worse and recently started having intermittent sharp chest pains mainly in the left retrosternal region. Patient states that this morning he was having chest pain and also achy feeling in the left arm along with the pain. Patient also felt very weak and increased short of breath. No headache or dizziness or lightheadedness. No diaphoresis. Patient also having increasing leg swelling right more than left. Patient says that he will always have cough due to his COPD. No recent change or increase sputum production. No fever no chills. No recent illnesses. EKG showed atrial fibrillation with rapid ventricular response. Chest x-ray showed cardiomegaly and chronic emphysematous change without acute pulmonary process. No significant change from prior. D-dimer is elevated at 2.35. Troponin x3 - and proBNP is 976 Coronavirus PCR not detected. WBC 12.5 hemoglobin 13.8 and platelets 544 sodium 133 potassium 3.5 chloride 97 BUN [address] angiogram of the chest showed no acute pulmonary embolism. There are some changes compatible with right heart strain. 01/02/2021 Patient is seen and evaluated and follow-up currently continues on 3 L of oxygen via nasal cannula. Patient states he does not normally wear any oxygen in the outpatient setting and is a smoker but has cut down drastically due to his new living situation of not being able to smoke in his apartment. He continues to have shortness of breath with exertion and states he felt short of breath while walking to the bathroom and back on room air. Patient denies any dizziness or lightheadedness or feelings of passing out. Patient denies any chest pain or palpitations at this time. Cardiology following and patient is on IV Lasix twice daily and will continue. Patient underwent 2-D echo showing mild concentric left ventricular hypertrophy with overall LV systolic function is low to normal with an EF of 50-55% with a trace of mitral and tricuspid regurgitation present along with the right ventricle being mildly enlarged. Patient continues to be in A. fib and being started on metoprolol and will continue to hold Norvasc and chlorthalidone for now. Continue with IV Lasix twice daily. Cholesterol panel within normal limits. BMP within normal limits. IV heparin has been discontinued. 01/03/2021 Patient is seen and evaluated and follow-up with no acute overnight issues resting comfortably on room air. Patient states his shortness of breath has improved and has not been requiring oxygen. Patient will continue with his bronchodilators and will continue with 40 mg of Lasix daily and close outpatient follow-up with cardiology and also instructed patient to follow-up with primary care provider this week. Patient to continue avoiding tobacco use with attempts at quitting upon discharge. Patient will also continue on metoprolol and will continue to hold Norvasc and chlorthalidone. Patient has been started on Eliquis and was verified that it is 100% covered through his insurance. Patient is asking if he can go home today. Currently no reports of chest pain, shortness of breath, or palpitations. Patient is afebrile. No reports of nausea or vomiting and patient is tolerating diet. Patient will be discharged to home today On exam vital signs are stable. Cardio S1, S2 are muffled. Respiratory shows diminished breath sounds at the bases with a few scattered rhonchi noted. Abdomen is soft and nontender. Nervous system shows no focal deficits. Please refer to medication reconciliation sheet for a list of medications. Patient Condition at Discharge: Fair Plan - Discharge Summary Discharge Rx Participant: No New Discharge Prescriptions: New Aspirin 81 mg PO DAILY 30 Days #30 chew Furosemide [Lasix] 40 mg PO DAILY 30 Days #30 tablet Metoprolol Tartrate [Lopressor] 25 mg PO BID 30 Days #60 tab Apixaban [Eliquis] 5 mg PO BID 30 Days #60 tab Continue allopurinoL [Zyloprim] 100 mg PO DAILY Gabapentin 600 mg PO TID Tiotropium Br/Olodaterol HCl [Stiolto Respimat Inhal Krum] 2 spray INHALATION RT-DAILY Cyclobenzaprine [Flexeril] 10 mg PO TID PRN PRN Reason: Muscle Spasm HYDROcodone/APAP 10-325MG [[place] 10-325] 1 tab PO TID PRN PRN Reason: Pain Changed amLODIPine [Norvasc] 5 mg PO DAILY #0 Discontinued Chlorthalidone 25 mg PO DAILY Discharge Medication List allopurinoL [Zyloprim] 100 mg PO DAILY 05/23/19 [History] Cyclobenzaprine [Flexeril] 10 mg PO TID PRN 01/01/21 [History] Gabapentin 600 mg PO TID 01/01/21 [History] HYDROcodone/APAP 10-325MG [[place] 10-325] 1 tab PO TID PRN 01/01/21 [History] Tiotropium Br/Olodaterol HCl [Stiolto Respimat Inhal Krum] 2 spray INHALATION RT-DAILY 01/01/21 [History] Apixaban [Eliquis] 5 mg PO BID 30 Days #60 tab 01/03/21 [Rx] Aspirin 81 mg PO DAILY 30 Days #30 chew 01/03/21 [Rx] Furosemide [Lasix] 40 mg PO DAILY 30 Days #30 tablet 01/03/21 [Rx] Metoprolol Tartrate [Lopressor] 25 mg PO BID 30 Days #60 tab 01/03/21 [Rx] amLODIPine [Norvasc] 5 mg PO DAILY #0 01/03/21 [Rx] Follow up Appointment(s)/Referral(s): Chico Guerra MD [Primary Care Provider] - 1-2 days Robby Cortez MD [STAFF PHYSICIAN] - 2 Weeks (office will call patient with appointment ) Patient Instructions/Handouts: A-fib (Atrial Fibrillation) (GEN), Chest Pain (GEN) Activity/Diet/Wound Care/Special Instructions: Activity Limited until follow-up Follow-up with primary care provider upon discharge Take all medications as prescribed Continue heart healthy diet Continue to attempt to quit smoking Follow-up cardiology as discussed in 1-2 weeks Discharge Disposition: HOME SELF-CARE
[2021-01-03] MEDS ORDERED: FUROSEMIDE 40 MG TAB PO SCH (16:00)
== END 2021-01-03 12:08 | disposition home or self-care (01) ==
LOC: EC 09:20 → 6NMEDSUR 12:55
PROVIDERS: ADMIT Internal Medicine; ATTEND Internal Medicine
DX: I48.0 Paroxysmal atrial fibrillation (principal); I50.33 Acute on chronic diastolic (congestive) heart failure; I11.0 Hypertensive heart disease with heart failure; J44.9 Chronic obstructive pulmonary disease, unspecified; Z20.822 Contact with and (suspected) exposure to COVID-19; F17.200 Nicotine dependence, unspecified, uncomplicated; M19.90 Unspecified osteoarthritis, unspecified site; G89.29 Other chronic pain; M54.5 Low back pain; H91.90 Unspecified hearing loss, unspecified ear; M10.9 Gout, unspecified; G56.03 Carpal tunnel syndrome, bilateral upper limbs; F40.240 Claustrophobia; Z79.899 Other long term (current) drug therapy; Z87.01 Personal history of pneumonia (recurrent); Z87.81 Personal history of (healed) traumatic fracture
CPT/HCPCS: 96376 ×2; 96366 ×3; 96375; 93005 ×2; 96365; 99285; 36415; 94640 ×4; 94760 ×2; 85379; 84439; 83880; 80061; 80053; 80048 ×2; 84443; 82550; 83690; 83735; 84484; 85025 ×2; 85610 ×2; 85730 ×3; 87635; 71046; 93971; 71275; G0378 ×3; C8929; J1940 ×2; J1644 ×4; Q9950; Q9967; 93306

== ENCOUNTER → 2021-06-23 | Outpatient (CLI) | payer OTHER ==
[2021-06-23 14:05] LABS: HCT 46.1 % (39.0-53.0); HGB 16.4 gm/dL (13.0-17.5); MCH 32.4 pg (25.0-35.0); MCHC 35.6 g/dL (31.0-37.0); MCV 91.2 fL (80.0-100.0); Mean Platelet Volume 6.4; Platelet Count 429 k/uL (150-450); RBC 5.05 m/uL (4.30-5.90); RDW 13.8 % (11.5-15.5); WBC 7.5 k/uL (3.8-10.6)
[2021-06-23 14:09] LABS: Potassium 3.8 mmol/L (3.5-5.1)
== END | disposition home or self-care (01) ==
LOC: LABPAT 12:08
PROVIDERS: ATTEND Internal Medicine Interventional Cardiology
DX: Z01.812 Encounter for preprocedural laboratory examination (principal); R06.02 Shortness of breath
CPT/HCPCS: 80051; 82565; 84520; 85027

== ENCOUNTER 2021-06-30 10:17 | Day surgery (SDC) | payer OTHER ==
[2021-06-27 09:19] VITALS: BMI 30.2
[~2021-06-30 10:17] MED LIST changes: -ACETAMINOPHEN TAB 500 MG TAB PO ONE; +ALPRAZolam 0.25 MG TAB PO PRN; +ALPRAZolam 0.5 MG TAB PO PRN; +ASPIRIN 325 MG TAB PO STA; +HEPARIN SODIUM,PORCINE 10,000 UNIT in SODIUM CHLORIDE 0.9% 1,000 ML IRRIGATION PRN; +HEPARIN SODIUM,PORCINE 2,500 UNIT in SODIUM CHLORIDE 0.9% 250 ML IRRIGATION PRN; -LACTATED RINGERS 1,000 ML IV SCH; -MIDAZOLAM 2 MG/2 ML VIAL IV PRN; +NITROGLYCERIN SL TABS 0.4 MG TAB SUBLINGUAL PRN; -ONDANSETRON 4 MG/2 ML VIAL IVP ONE; -ROPIVACAINE 246.25 MG, EPINEPHrine 0.5 MG, KETOROLAC 30 MG, cloNIDine HCL/PF 80 MCG, WA... MISCELLANE ONE; +SODIUM CHLORIDE 0.9% 1,000 ML in EMPTY BAG 1 BAG IV SCH; -TRANEXAMIC ACID 1,000 MG in SODIUM CHLORIDE 0.9% 100 ML IVPB ONE
[2021-06-30 10:55] VITALS: RESP 16; TEMP 98.6
[2021-06-30] MEDS ORDERED: MIDAZOLAM 2 MG/2 ML VIAL IV ONE (12:48)
[2021-06-30] MEDS ORDERED: LIDOCAINE 1% INJ 10MG/ML (20 ML MDV) SQ ONE (12:50)
[2021-06-30] MEDS: VERAPAMIL SYRINGE (5 MG/10 ML) INTRAARTER ONE ×2 (12:52→13:06)
[2021-06-30] MEDS ORDERED: IOPAMIDOL-370 125ML BTL INJ ONE (13:06)
[2021-06-30] MEDS ORDERED: RX INFO: IV CONTRAST WAS GIVEN 1 EACH MISC MISCELLANE PRN (13:09)
[2021-06-30] MEDS ORDERED: SODIUM CHLORIDE 0.9% 1,000 ML IV SCH (13:15)
--- NOTE | 2021-06-30 14:50 | CC ---
CARDIAC CATHETERIZATION REPORT DATE OF SERVICE: June 30, 2021. PERFORMING PHYSICIAN: Robby Cortez MD. PROCEDURE PERFORMED: 1. Selective right and left coronary angiogram. 2. Left heart catheterization. INDICATION: Chest discomfort in this 61-year-old gentleman with history of smoking as well as multiple other risk factors for CAD who underwent myocardial perfusion imaging stress test and that revealed an anterior ischemia. APPROACH: Right radial artery. COMPLICATION: None. LEVEL OF SEDATION: Moderate with sedation length of 20 minutes. PROCEDURE: After obtaining an informed consent, the patient was brought to the cardiac medical laboratory technical officer. The right radial artery was cannulated using micropuncture technique under ultrasound guidance, the micropuncture wire passed easily. Then I placed a 6-Setswana sheath at the right radial artery. I gave the patient 2 mg of verapamil IA and 10,000 units of heparin IV. Selective left and right coronary angiogram performed using JL 3.5, and Rj Salas catheter. After that, left heart catheterization was performed using the JR4 catheter which attempted to the engage the RCA and across the aortic valve. The procedure was completed without any complication. SELECTIVE CORONARY ANGIOGRAM: 1. Right coronary artery is a large-caliber vessel. It is a nondominant vessel and appeared to be angiographically normal. It distally bifurcates into PDA and PLV branches, both appeared to be angiographically normal. 2. The left main is angiographically normal. It bifurcates into left circumflex and left anterior descending artery. 3. The left circumflex is a large-caliber vessel. It is a nondominant vessel. The left circumflex system is normal. It gives rise into the first and second obtuse marginal branches both appeared to be angiographically normal. 4. The LAD is a large-caliber vessel. The LAD is angiographically normal. Gives rise into multiple medium-sized diagonal branches appeared to be angiographically normal. HEMODYNAMICS: The LVEDP was about 4-6 mmHg without significant gradient across aortic valve. CONCLUSION: 1. Normal coronary angiogram. 2. Low left-sided filling pressure. POSTPROCEDURE MANAGEMENT: Medical treatment and follow up with the patient. MMODL / IJN: [id number] /
[2021-06-30 17:05] VITALS: PULSE 82
[2021-06-30 17:17] VITALS: BP 115/81
== END 2021-06-30 17:46 | disposition home or self-care (01) ==
LOC: CATHCVL 10:17
PROVIDERS: ATTEND Internal Medicine Interventional Cardiology
DX: R94.39 Abnormal result of other cardiovascular function study (principal); R07.89 Other chest pain; F17.210 Nicotine dependence, cigarettes, uncomplicated; I48.0 Paroxysmal atrial fibrillation; I10 Essential (primary) hypertension; I08.1 Rheumatic disorders of both mitral and tricuspid valves; Z82.49 Family history of ischemic heart disease and other diseases of the circulatory system; Z79.01 Long term (current) use of anticoagulants; Z79.899 Other long term (current) drug therapy
CPT/HCPCS: 93458; 87635; C1894; J2250; J2001; J1644; Q9967

== ENCOUNTER → 2023-04-09 | Outpatient (CLI) | payer MEDICARE, OTHER ==
--- NOTE | 2023-04-14 20:12 | CTL ---
EXAMINATION TYPE: CT Low Dose Lung DATE OF EXAM ORDERED: 04/09/2023 HISTORY: 63-year-old male Z12.2, Z87.891, F17.210. Current smoker with a 20 pack-year history. Lung c ancer screening CT DLP: 101.[address] CTDI: 2.6 mGy Automated exposure control for dose reduction was used. SCREENING VISIT: Baseline COMPARISON: 01/01/2021 TECHNIQUE: Low dose computed tomography scan was performed through the chest with coronal and sagitta l reconstructions. CT DIAGNOSTIC QUALITY: Satisfactory FINDINGS: Heart normal size without pericardial effusion. Mild LAD coronary artery calcifications are present. Aorta normal caliber with conventional access of branching anatomy. There is COPD with advanced emphysematous change. Biapical pleural-parenchymal scarring. Some nodular pleural thickening anterior right upper lobe remains unchanged. Mild diffuse bronchial wall thickeni ng. * There is a spiculated suspicious pulmonary nodule measuring 2.5 x 1.5 cm in the posterior right up per lobe which is new compared to 01/01/2021. * 4 mm right lower lobe pulmonary nodule on axial image 188 not seen previously is nonspecific. A few benign calcified granulomas are noted and remain unchanged from prior exam. Lobulated bilateral renal contours, unchanged. Bones: Mild degenerative disc disease mid to lower thoracic spine. IMPRESSION: 1. LungRADS 4X, very suspicious for a 2.5 cm right upper lobe lung cancer, new from 2020. Appropriate pulmonary medicine and PET/CT evaluation advised. 2. A second 4 mm right lower lobe pulmonary nodule is also new but nonspecific. A metachronous primar y is not entirely excluded at this time. However, due to its small size, reassess in 3 months. 3. COPD with advanced emphysema. Evidence of prior granulomatous disease. Recommend smoking cessation . CT LUNG RAD AND CT CHEST RECOMMENDATION: Lung-Rad 4B or 4X Very Suspicious: Follow-up Chest CT with o r without contrast or PET/CT and/or tissue sampling. PET/CT may be used when there is a > 8 mm solid component. S Modifier (other clinically significant findings): None
== END | disposition home or self-care (01) ==
LOC: RADCTMAIN 12:49
PROVIDERS: ATTEND Internal Medicine
DX: Z12.2 Encounter for screening for malignant neoplasm of respiratory organs (principal); J43.9 Emphysema, unspecified; R91.1 Solitary pulmonary nodule; F17.210 Nicotine dependence, cigarettes, uncomplicated
CPT/HCPCS: 71271

== ENCOUNTER → 2023-05-20 | Outpatient (CLI) | payer MEDICARE, OTHER ==
--- NOTE | 2023-05-24 16:24 | PE ---
EXAMINATION TYPE: PET CT fusion skull to thigh DATE OF EXAM: 05/20/2023 COMPARISON: Low-dose CT 04/09/2023 Prior PET/CT: None HISTORY: Lung nodule TECHNIQUE: Following the intravenous administration of 10.78 mCi of F-18 FDG, whole body images are performed from the skull base to the midthigh. Images are reviewed on the computer in the coronal, a xial, and sagittal planes. Reconstructed rotating images are created on independent workstation and reviewed on the computer. A localization and attenuation correction CT is performed in conjunction with the PET scan. DLP: 701.05 mGycm SCAN: Initial Blood glucose: 131 mg/dL Average Mediastinum SUV: 2.5 Average Liver SUV: 2.64 FINDINGS: NECK: No abnormal uptake THORAX: There is intense uptake within a lung nodule posterior right upper lung field, image 80 is se en in the 10.12. There is prominent lymphadenopathy within the mediastinum. A lymph node adjacent to the ascending tho racic aorta, image 87, has an SUV of 3 9. A prominent pretracheal lymph node, image 88, has an SUV of 2.19 below an additional pretracheal lymph node image 83 has an SUV of 1.86. Background. ABDOMEN: No abnormal uptake PELVIS: No abnormal uptake OSSEOUS STRUCTURES: No abnormal uptake LOCALIZATION CT: There are some scattered lymphadenopathy within the mediastinum, some which is promi nent by CT measurement criteria. Suspicious focal radiotracer uptake however is not identified at thi s time. Note is made of some diverticulosis without acute diverticulitis within the sigmoid colon. COMPARISON: None IMPRESSION: 1. Intense uptake within a right lung nodule. 2. Suspicious mediastinal uptake is not identified. However there are some prominent mediastinal lymp h nodes I CT criteria present.
== END | disposition home or self-care (01) ==
LOC: RADPETMAIN 12:09
PROVIDERS: ATTEND Internal Medicine
DX: R91.1 Solitary pulmonary nodule (principal)
CPT/HCPCS: 78815; A9552

== ENCOUNTER → 2023-06-24 | Day surgery (SDC) | payer MEDICARE, OTHER ==
[2023-06-22 10:03] VITALS: BMI 29.5
[~2023-06-24] MED LIST changes: -ALPRAZolam 0.25 MG TAB PO PRN; -ALPRAZolam 0.5 MG TAB PO PRN; -ASPIRIN 325 MG TAB PO STA; -HEPARIN SODIUM,PORCINE 10,000 UNIT in SODIUM CHLORIDE 0.9% 1,000 ML IRRIGATION PRN; -HEPARIN SODIUM,PORCINE 2,500 UNIT in SODIUM CHLORIDE 0.9% 250 ML IRRIGATION PRN; +LACTATED RINGERS 1,000 ML IV SCH; -NITROGLYCERIN SL TABS 0.4 MG TAB SUBLINGUAL PRN; -SODIUM CHLORIDE 0.9% 1,000 ML in EMPTY BAG 1 BAG IV SCH
--- NOTE | 2023-06-24 11:46 | CT ---
Exam: CT Chest without contrast. Date: 06/24/2023. Comparison: PET/CT on 05/20/2023. History: Ion bronch. Technique: CT examination of the chest was performed without contrast. Coronal and sagittal reformats were performed. CT dose lowering techniques were used, to include: automated exposure control, adjus tment for patient size, and/or use of iterative reconstruction. FINDINGS: Mediastinum and Diamond: Prominent mediastinal lymph nodes are seen which are unchanged. Pleural and Pericardial spaces: There are no pleural or pericardial effusions. Upper Abdomen: The visualized upper abdomen is unremarkable. Cardiovascular: There is mild vascular calcification throughout the thoracic aorta without evidence o f aneurysmal dilation. Mild coronary artery calcifications are noted. Lung Parenchyma and Airways: Unchanged 2.7 cm spiculated nodule in the right upper lobe. Severe diffu se centrilobular emphysema. Scattered bronchial wall thickening and inflammatory airway changes. No f ocal area of consolidation. Bones: No fracture or aggressive osseous lesion. IMPRESSION: 1. Unchanged appearance to the spiculated right upper lobe pulmonary nodule compatible with malignanc y. 2. Prominent mediastinal lymph nodes are unchanged. 3. Severe emphysema.
[2023-06-24] MEDS: LACTATED RINGERS 1,000 ML IV SCH ×2 (12:13→12:47)
--- NOTE | 2023-06-24 14:19 | FL ---
EXAMINATION TYPE: FL bronchoscopy DATE OF EXAM: 06/24/2023 COMPARISON: NONE HISTORY: BRONCH TECHNIQUE: Fluoroscopy. FINDINGS: Right upper lobe ion bronch with biopsies 2 min 6 sec fl 5.2342 DAP IMPRESSION: As Above.
[2023-06-24 14:34] VITALS: TEMP 97.8
--- NOTE | 2023-06-24 15:14 | XR ---
EXAMINATION TYPE: XR chest 1V portable DATE OF EXAM: 06/24/2023 COMPARISON: 01/11/2021 HISTORY: Shortness of breath TECHNIQUE: Frontal and lateral views of the chest are obtained. FINDINGS: Scattered senescent parenchymal changes noted. Hyperinflation compatible with COPD. No evidence for infiltrate. No evidence for atelectasis. Scattered pulmonary venous congestion with i nterstitial prominence. No overt failure at this time. No evidence for pneumothorax. Heart size is stable. Mediastinal structures are stable and grossly unremarkable. No evidence for hilar prominence. Degenerative changes dorsal spine. IMPRESSION: 1. No evidence for pneumothorax in a patient who is status post bronchoscopy.
[2023-06-24 15:21] VITALS: BP 133/84; PULSE 71; RESP 20
--- NOTE | 2023-07-05 09:05 | P.PCN ---
Date of Procedure: 06/24/23 Operative Findings: Preoperative Diagnosis: Right upper lobe mass Mediastinal lymphadenopathy Postoperative Diagnosis: Right upper lobe mass Mediastianal lymphadenopathy, station 7 Procedure(s) Performed: Flexible bronchoscopy Robotic-assisted bronchoscopy and addition to radial ultrasound evaluation of the lung mass Robotic-assisted test monitor needle aspirate, transbronchial biopsies, transbronchial brushing of the Right upper lobe mass in addition to a bronchioloalveolar lavage Endobronchial ultrasound Endobronchial ultrasound-guided transbronchial needle aspirate of station 7 lymph node Anesthesia: GETA Surgeon: Morgan Steven Estimated Blood Loss (ml): 0 Pathology: other Condition: stable Disposition: same day Operative Findings: A physical exam was performed. Informed consent was obtained from the patient after explaining all the risks (pneumothorax, life threatening bleeding, infection and adverse effects due to medications), benefits and alternatives to the procedure which the patient appeared to understand and so stated. The patient was connected to the monitoring devices. General anesthesia was induced and the patient was intubated by anesthesia. A final timeout was performed and the procedure confirmed by the attending staff bronchoscopist. The bronchoscope was inserted and the airway examined. The flexible bronchoscope was removed and the robotic bronchoscope was inserted. Registration was completed. I next guided the robotic bronchoscope using the navigation system into the Right upper lobe posterior segment segment. Once in proper position, the bronchoscope was frozen. The radial EBUS probe was placed through the bronchoscope and confirmed abnormal u/s images vs normal lung. A needle was placed through the working channel and under fluoroscopic guidance, we sampled the area thought to have the mass twice. We then used a cloud biopsy pattern with ultrasound confirmation for 2 additional passes with the needle. U/S evaluation was then used to reconfirm location. Forceps were next introduced through working channel and extended the appropriate distance and 3 transbronchial biopsies were performed using fluoroscopic guidance. The u/s probe was then reinserted to confirm location. When confirmed this process was repeated for a total of 6 transbronchial biopsies. After reassessment with EBUS, a brush was placed through the extendable working channel for 1 pass with fluoroscopic guidance. U/S evaluation was then used to confirm location. 40ml of saline was then instilled into the area of the lesion. The robotic bronchoscope was removed and the airway inspected with a flexible bronchoscope and 10 ml of effluent from the BAL was collected. The flexible bronchoscope was removed and the EBUS-TBNA bronchoscope was used to intubate the pateint through the ETT. Following that, endobronchial ultrasound was inserted for mediastinal lymph node evaluation. EBUS was completed and the evaluation of the mediastinal lymph nodes revealed a 1.5 cm station 7 lymph node. Under direct visualization, transbronchial needle aspirate of the station 7 lymph node was done using a 22- gauge vizishot aspiration needle. A total of 5 passes were done. No other pathologic lymph nodes were seen in the mediastinum The patient was then extubated with the EBUS-TBNA bronchoscope and intubated with an Olympus IT bronchoscope without difficutly. The airways were inspected and cleared of secretions and blood. Fluoroscopic check for pneumothorax was negative upon completion of the procedure. There was 0 ml blood loss with the procedure. FINDINGS: 1.The airways appeared normal 2 Successful navigation, ultrasonographic identification, and biopsies of Right upper lobe mass 3.The EBUS view was (Eccentric). - Stations sampled: 7 RECOMMENDATIONS: Await pathology and cytology results The referring physician will be alerted to the results when available. The patient was advised to follow up with the referring physician with the biopsy results Patient will be called with results.
== END | disposition home or self-care (01) ==
LOC: ORWHC2ENDO 12:13
PROVIDERS: ATTEND Internal Medicine Critical Care Medicine
DX: C34.11 Malignant neoplasm of upper lobe, right bronchus or lung (principal); J43.9 Emphysema, unspecified; J44.9 Chronic obstructive pulmonary disease, unspecified; E78.5 Hyperlipidemia, unspecified; F17.200 Nicotine dependence, unspecified, uncomplicated
CPT/HCPCS: 88305; 88173; 88342; 71045; 71250; 31628; 31629; 31623; 31624; 31652; S2900

== ENCOUNTER → 2023-10-19 | Outpatient (CLI) | payer MEDICARE, OTHER ==
--- NOTE | 2023-10-19 14:10 | CT ---
EXAMINATION TYPE: CT chest wo con CT DLP: 431.8 mGycm, Automated exposure control for dose reduction was used. DATE OF EXAM: 10/19/2023 12:52 PM COMPARISON: PET/CT 05/20/2023. CLINICAL INDICATION:Male, 63 years old with history of C34.11,F17.210; PHH, rt side lung cancer, hx o f nicotine dependence TECHNIQUE: Multiple axial images were obtained through the chest. Sagittal and coronal reformats were created for review. Contrast used: mL of (None if empty) Oral contrast used: (None if empty) FINDINGS: LUNGS/ PLEURA: Right upper lung spiculated nodule measuring 18 x 12 mm previously 22 x 14 mm on a tia kground of moderate to severe emphysema. No focal consolidation, pneumothorax or pleural effusion. AIRWAY: Patent and unremarkable. HEART: Size within normal limits. MEDIASTINUM: No gross evidence of adenopathy. Prominent lymph node at the right low paratracheal loca tion measuring 13 mm in short axis. VASCULATURE: No aortic aneurysm. MUSCULOSKELETAL: No acute osseous abnormalities SOFT TISSUES/LYMPH NODES: Unremarkable. LOWER NECK: No significant findings. UPPER ABDOMEN: No significant findings. IMPRESSION: Right upper lung primary malignancy measuring up to 18 x 12 mm which is actually smaller than prior. This was FDG avid on prior PET/CT. Similar appearance to mediastinal lymph nodes compared to PET/CT. No obvious evidence for metastatic disease.
== END | disposition home or self-care (01) ==
LOC: RADCTMAIN 11:39
PROVIDERS: ATTEND Radiology Radiation Oncology
DX: C34.11 Malignant neoplasm of upper lobe, right bronchus or lung (principal); F17.210 Nicotine dependence, cigarettes, uncomplicated
CPT/HCPCS: 71250

== ENCOUNTER → 2024-02-22 | Outpatient (CLI) | payer MEDICARE, OTHER ==
--- NOTE | 2024-02-22 15:21 | CT ---
EXAMINATION TYPE: CT chest wo con DATE OF EXAM: 02/22/2024 COMPARISON: 10/19/2023, 06/24/2023 HISTORY: 63-year-old male C3 4.11, f/u lung CA, COPD TECHNIQUE: Contiguous axial scanning of the chest without IV contrast. Coronal/sagittal reconstructio ns performed. CT DLP: 511mGycm. Automatic exposure control utilized for a dose reduction. FINDINGS: Heart is normal size without pericardial effusion. Aorta is normal caliber within the chart vessel branching anatomy. Increasing mediastinal and right hilar adenopathy: prevascular space node now 1.6 cm versus 8 mm, previously. Right paratracheal node now 2.2 cm versus 1.2 cm, previously. Lower right paratracheal node 1.6 cm thick now versus 1.0 cm thick, previously. Right hilar node meeting new estimated at 2.8 cm. Clear delineation of borders limited due to lack of IV contrast. Large caliber main right and left pulmonary arteries up to 3.0 cm suggest underlying pulmonary arteri al hypertension. Focal opacity right upper lobe measures 1.5 x 0.9 cm. Previously measured 2.2 x 1.1 cm on 10/19/2023 a nd 2.8 x 2.0 cm on 06/24/2023. Findings suggest ongoing posttreatment change. The adjacent groundglas s has increased suggesting postradiation therapy changes. Background advanced emphysema redemonstrate d. A few scattered tiny 3 mm and smaller pulmonary nodules remain unchanged. Visualized upper abdomen shows numerous renal cortical cysts measuring up to 2.1 cm. Bones: Scattered mild degenerative disc disease. IMPRESSION: 1. Increasing mediastinal and right hilar adenopathy now measuring up to 2.8 cm versus 1.2 cm, previo usly. Findings suggest disease progression. 2. However, the local site of disease in the right upper lobe continues to improve with the nodule no w measuring 1.5 x 0.9 cm (versus 2.2 x 1.1 cm, previously). The adjacent groundglass has increased bender ggesting postradiation therapy change. 3. Background COPD with advanced emphysema and pulmonary arterial hypertension.
== END | disposition home or self-care (01) ==
LOC: RADCTMAIN 13:16
PROVIDERS: ATTEND Radiology Radiation Oncology
DX: C34.11 Malignant neoplasm of upper lobe, right bronchus or lung (principal); J43.9 Emphysema, unspecified; I27.21 Secondary pulmonary arterial hypertension; F17.210 Nicotine dependence, cigarettes, uncomplicated
CPT/HCPCS: 71250

== ENCOUNTER 2024-03-23 12:00 | Day surgery (SDC) | payer MEDICARE, OTHER ==
[2024-03-21 12:02] VITALS: BMI 31.3
[2024-03-23] MEDS: IV FLUID CONTINUATION 1,000 ML IV ONE (13:00)
[2024-03-23] MEDS: LACTATED RINGERS 1,000 ML IV SCH (13:10)
[2024-03-23] MEDS ORDERED: SUCCINYLCHOLINE CHLORIDE 200 MG/10 ML VIAL IV ONE (13:19)
[2024-03-23] MEDS ORDERED: NEOSTIGMINE 1 MG/ML 10 ML VIAL ONE (13:19)
[2024-03-23] MEDS ORDERED: ROCURONIUM 10 MG/ML (5 ML VIAL) IV ONE (13:19)
[2024-03-23] MEDS ORDERED: PHENYLEPHRINE-0.9% NACL SYG 1,000 MCG/10 ML SYRINGE ONE (13:19)
[2024-03-23] MEDS ORDERED: fentaNYL (PF) 50 MCG/ML 2 ML AMP ONE (13:19)
[2024-03-23] MEDS ORDERED: GLYCOPYRROLATE 0.2 MG/ML 2 ML VIAL ONE (13:19)
[2024-03-23] MEDS ORDERED: LIDOCAINE 1% INJ 10MG/ML (20 ML MDV) ONE (13:19)
[2024-03-23] MEDS ORDERED: PROPOFOL 10 MG/ML 20 ML VIAL IV ONE (13:19)
[2024-03-23 14:45] VITALS: TEMP 97.2
[2024-03-23 14:49] VITALS: RESP 16
--- NOTE | 2024-03-23 14:49 | P.PCN ---
Date of Procedure: 03/23/24 Operative Findings: Preoperative Diagnosis: 1 Squamous cell carcinoma, right upper lobe 2 Mediastinal lymphadenopathy, rule out cancer recurrence Postoperative Diagnosis: 1 Right upper lobe mass, squamous cell lung cancer 2 Mediastinal lymphadenopathy Procedure(s) Performed: 1 flexible bronchoscopy, airway inspection 2 endoscopic ultrasound (EBUS) 3 transbronchial needle aspirate of station 4R and station 10 lymph nodes Surgeon: Morgan Steven Estimated Blood Loss (ml): 0 Pathology: other Condition: stable Disposition: same day Operative Findings: After obtaining the consent the patient was taken to the OR suite he was intubated and put on MV by anesthesia then the scope was advanced to the ET tube until the Trachea was seen and it was normal and then the jam appears normal then the scope advanced to the left main and LIZBETH LB1-LB3 were seen and no end obronchial lesions were seen then the scope advanced to the lingula and the LB4 and LB5 were seen and no endobronchial lesions were seen the scope retracted and advanced to the left lower lobes LB6 to LB12 were seen one by one and no endobronchial lesions, then the scope was retracted back to the jam and advanced to the Right main and RUL RB1 and RB2 and RB3 were seen one by one and no endobronchial lesions were seen the scope then retracted and advanced to the BI and RML RB4 and RB5 were seen and no endobronchial lesions were seen then it was retracted and advanced to the RLL RB6 to RB12 were seen one by one and no endobronchial lesions. Then EBUS was used and the lymph nodes were examined. Direct measurement of the mediastinal lymph nodes revealed a 13x12 mm station 4R lymph node, 11 x 15 mm station 10 R lymph node, several smaller lymph nodes along the paratracheal strip, non in the subcarinal area. I performed transbronchial needle aspirate of station 10 R and a total of 5 passes FNA without major bleeding station 4R lymph nodes were a total of 5 passes were obtained. No major bleeding and the scope was removed and taken out in total the patient was send to the floor in stable condition
[2024-03-23 15:36] VITALS: PULSE 76
[2024-03-23 15:55] VITALS: BP 125/78
== END 2024-03-23 16:19 | disposition home or self-care (01) ==
LOC: ORWHC2ENDO 12:00
PROVIDERS: ATTEND Internal Medicine Critical Care Medicine
DX: C34.11 Malignant neoplasm of upper lobe, right bronchus or lung
CPT/HCPCS: 31629; 31652; 88305; 88341; 88342

== ENCOUNTER → 2024-04-12 | Outpatient (CLI) | payer MEDICARE, OTHER ==
--- NOTE | 2024-04-12 19:07 | MR ---
EXAMINATION TYPE: MR brain wo/w con DATE OF EXAM: 04/12/2024 COMPARISON: 01/02/2016 HISTORY: Lung cancer. CONTRAST: Performed utilizing 9 mL intravenous Gadavist gadolinium contrast. TECHNIQUE: Multiplanar, multiecho imaging on a 3.0 Corin magnet is performed through the brain. Stud y is performed within 24 hours of arrival to the hospital. The craniovertebral junction is normal. The pituitary is normal. Diffusion-weighted imaging is performed. No abnormal hyperintensity is present to suggest an acute i ntracranial infarct or acute ischemic change. There are a few scattered punctate areas of hyperintensity on T2 and Inversion Recovery weighted sequ ences which are non-specific but can be related to microvascular ischemic changes. Ventricles and sulci are appropriate for the patient age. There is a 1.3 cm thin rim enhancement posterior left occipital lobe. Minimal adjacent vasogenic rambo a may be present. Tiny left metastasis be the posterior to the occipital horn left lateral ventricle series 701 image 81. Findings are suggestive of metastasis. Mucosal thickening is present through the bilateral maxillary sinuses. There is opacification of ethm oid air cells as well as thickening frontal sinuses. Possible thickening sphenoid sinuses. Right sep breann deviation is present. There may be some fluid within petrous ridge on the right. IMPRESSION: 1. Suggestion of a metastasis posterior left occipital lobe. Tiny left metastasis may be posterior to the occipital horn left lateral ventricle. [facility], , 04/12/2024 7:05 PM
== END | disposition home or self-care (01) ==
LOC: RADMRIMAIN 17:13
PROVIDERS: ATTEND Radiology Radiation Oncology
DX: C34.11 Malignant neoplasm of upper lobe, right bronchus or lung
CPT/HCPCS: 70553

== ENCOUNTER → 2024-07-13 | Outpatient (CLI) | payer MEDICARE, OTHER ==
--- NOTE | 2024-07-13 18:27 | PE ---
EXAMINATION TYPE: PET CT fusion skull to thigh DATE OF EXAM: 07/13/2024 CLINICAL INDICATION:Male, 64 years old with history of C34.11; TECHNIQUE: Following the intravenous administration of 10.72 mCi of F-18 FDG, whole body images are performed from the skull base to the midthigh. Images are reviewed on the computer in the coronal, axial, and sagittal planes. Reconstructed rotating images are created on independent workstation and reviewed on the computer. A non-contrast CT is performed in conjunction with the PET scan. Glucose level 114 mg/dL CT DLP: 855 mGycm, Automated exposure control for dose reduction was used. COMPARISON: CT None, PET/CT 03/17/2024, MRI: 03/12/2024 FINDINGS: Mediastinal SUV mean is 2.8. Hepatic parenchyma SUV mean is 3.2. SKULL BASE AND NECK: * Right low neck FDG avid lymph nodes max SUV 2.6, previously 22.7 measuring up to 6s mm in short ax is. * Left posterior neck lymph node max SUV 2.9, previously 12.1 measuring 9 mm previously 13.4 mm in s hort axis. CHEST, MEDIASTINUM, AND HILAR REGION: Multiple FDG avid lymph nodes are seen throughout the mediastinum examples include: * Right low paratracheal max SUV 4.5, previously 21.2 measuring 8 mm, previously 19 mm * Right high paratracheal max SUV 1.8, previously 18.1 measuring 6 mm, previously 10 mm. * Right pulmonary hilum max SUV 7.9, previously 12.3. Measurements difficult without IV contrast. * Left paratracheal max SUV 3.3 previously 10.7 measuring 4 mm, previously 9 mm. * Prevascular space max SUV 10.1 measuring 6 mm. * Left pulmonary hilum lymph nodes max SUV 5.5, previously 3.4. * New right anterior lower lung pulmonary nodule Max SUV 4.8 * Right upper lung FDG avid parenchymal abnormality new from prior max SUV 2.8 * Right lower lung pulmonary nodule is not definitively visualized on today's exam * New Right middle lobe/upper lobe irregular shaped patchy FDG activity FDG avid mass Max SUV 9.2. ABDOMEN AND PELVIS: No suspicious radiotracer activity. MUSCULOSKELETAL STRUCTURES: Left iliac bone focus of uptake max 3 2[address]: Scattered colonic diverticula. The appendix is normal. Previous left inferior pubic ramus f racture. Circumferential thickening of the nondistended bladder. Atherosclerosis of the arterial vasc ulature. IMPRESSION: Overall a majority of the lymph nodes demonstrate interval decrease in metabolic activity and decreas e in size. New patchy uptake within the right midlung and anterior right lower lung nodule concerning for progression of these lesions. [facility], , 07/13/2024 6:24 PM
== END | disposition home or self-care (01) ==
LOC: RADPETMAIN 11:30
PROVIDERS: ATTEND Internal Medicine Hematology & Oncology
DX: C34.11 Malignant neoplasm of upper lobe, right bronchus or lung (principal); R91.1 Solitary pulmonary nodule
CPT/HCPCS: 78815; A9552

== ENCOUNTER → 2024-07-14 | Outpatient (CLI) | payer MEDICARE, OTHER ==
--- NOTE | 2024-07-14 12:48 | MR ---
EXAMINATION TYPE: MR brain wo/w con DATE OF EXAM: 07/14/2024 12:31 PM COMPARISON: 04/12/2024 CLINICAL INDICATION: Male, 64 years old with history of C34.11 LUNG CANCER, F/U brain tumor TECHNIQUE: Multi planar multi sequence imaging of the brain. CONTRAST: Patient received 9 mL intravenous Gadobutrol gadolinium contrast. Pre and post contrast en hanced images are obtained. FINDINGS: The ventricles, basal cisterns and sulci overlying the cerebral convexities are mildly enlarged. There is evidence of mild periventricular white matter ischemic demyelination. Remote deep white matter insults are also noted. No acute edema is seen on diffusion weighted imaging. There is no evidence for midline shift or mass effect. Acute intracranial hemorrhage or extra-axial collection is not evident. Stable small rim-enhancing lesion posterior left occipital horn measuring 4.4 mm versus 5 previously. Occipital lobe lesion is much smaller and currently measures 7 mm versus 13 m maximal dimension prev iously. The paranasal sinuses and mastoid air cells are well-aerated. IMPRESSION: Lesion left occipital lobe persists although is has decreased in size relative to the previous study. Stable small rim-enhancing lesion posterior left occipital horn [facility], , 07/14/2024 12:46 PM
== END | disposition home or self-care (01) ==
LOC: RADMRIMAIN 11:15
PROVIDERS: ATTEND Radiology Radiation Oncology
DX: C79.31 Secondary malignant neoplasm of brain (principal); C34.11 Malignant neoplasm of upper lobe, right bronchus or lung; C34.31 Malignant neoplasm of lower lobe, right bronchus or lung; F17.210 Nicotine dependence, cigarettes, uncomplicated
CPT/HCPCS: 70553; A9585

== ENCOUNTER → 2024-10-06 | Outpatient (CLI) | payer MEDICARE, OTHER ==
--- NOTE | 2024-10-06 12:06 | MR ---
EXAMINATION TYPE: MR brain wo/w con DATE OF EXAM: 10/06/2024 COMPARISON: Prior MRI brain July 14, 2024 HISTORY: F/U comparison to prior MRI post radiation tx for brain mets. TECHNIQUE: Multiplanar, multisequence images of the brain and brainstem is performed without and with IV contras t, utilizing 9 mL intravenous Gadobutrol . FINDINGS: Diffusion weighted images demonstrate no evidence of a recent infarct or other diffusion ab normality. There is mild ventricular and sulcal prominence redemonstrated. There are several small s cattered foci throughout the white matter bilaterally again seen. Approximately 20 scattered lesions are redemonstrated. Midline structures redemonstrate normal morphology. The craniocervical junction appears within florence l limits. Post contrast images demonstrate ring-enhancing lesions. Lesion at level of left occipital horn now m easures 8 mm axial image 83 versus 4 mm on prior study. More prominent surrounding T2 hyperintensity or vasogenic edema is noted. Minimally larger posterior left occipital ring-enhancing lesion now marcelo uring 8 mm axial image 129 versus 7 mm on prior but now has some anterior and inferior T2 hyperintens e material or vasogenic edema. No definitive new enhancing metastatic lesions identified. The dural venous sinuses appear patent. There is now severe mucosal thickening of the ethmoid and max illary sinuses bilaterally and right sphenoid sinus. [id number] mucosal thickening left sphenoi d sinus is less prominent versus prior. There is stable mild mucosal thickening in the bilateral fron breann sinuses. Globes are intact bilaterally. IMPRESSION: 1. Negative treatment response with some interval growth in the 2 metastatic lesions and new associat ed vasogenic edema noted. No new metastatic lesions identified. 2. Worsening paranasal sinus disease noted as detailed above. [facility], , 10/06/2024 12:04 PM
== END | disposition home or self-care (01) ==
LOC: RADMRIMAIN 10:46
PROVIDERS: ATTEND Radiology Radiation Oncology
DX: C79.31 Secondary malignant neoplasm of brain (principal); C34.11 Malignant neoplasm of upper lobe, right bronchus or lung; C34.31 Malignant neoplasm of lower lobe, right bronchus or lung; F17.210 Nicotine dependence, cigarettes, uncomplicated; J34.89 Other specified disorders of nose and nasal sinuses
CPT/HCPCS: 70553; A9585

== ENCOUNTER → 2024-11-30 | Outpatient (CLI) | payer MEDICARE, OTHER ==
--- NOTE | 2024-11-30 13:51 | MR ---
EXAMINATION TYPE: MR brain wo/w con DATE OF EXAM: 11/30/2024 COMPARISON: Most recent prior MRI October 06, 2024 HISTORY: Lung and Brain cancer follow-up, TECHNIQUE: Multiplanar, multisequence images of the brain and brainstem is performed without and with IV contras t, utilizing 9 mL intravenous Gadobutrol . FINDINGS: Diffusion weighted images demonstrate no evidence of a recent infarct or other diffusion ab normality. There is mild ventricular and sulcal prominence redemonstrated. There are several small s cattered foci throughout the white matter bilaterally again seen. Approximately 20 scattered lesions are redemonstrated. Lesions remain nonspecific in appearance and distribution. Midline structures redemonstrate normal morphology. The craniocervical junction appears within florence l limits. Post contrast images demonstrate ring-enhancing lesions. Lesion at level of left occipital horn now m easures 12 mm axial image 68 versus 8 mm on prior study. Slightly more prominent surrounding T2 hyper intensity or vasogenic edema is noted. Stable posterior left occipital ring-enhancing lesion measuri ng 8 mm axial image 114 versus prior with persistent mild anterior and inferior T2 hyperintense mater ial or vasogenic edema. No definitive new enhancing metastatic lesions identified. The dural venous sinuses remain patent. The globes are intact bilaterally. Mild to moderate mucosal t hickening involving ethmoid sinuses bilaterally improved from prior. Mild mucosal thickening with dep endent fluid in the right maxillary sinus improved from prior. IMPRESSION: 1. Negative treatment response with some interval growth in the more superior left occipital metastat ic lesion. Stable metastatic lesion near the occipital horn. No new metastatic lesions identified. 2. Persistent but Improving paranasal sinus disease noted as detailed above. [facility], , 11/30/2024 1:48 PM
== END | disposition home or self-care (01) ==
LOC: RADMRIMAIN 12:22
PROVIDERS: ATTEND Radiology Radiation Oncology
DX: C79.31 Secondary malignant neoplasm of brain (principal); C34.11 Malignant neoplasm of upper lobe, right bronchus or lung; C34.31 Malignant neoplasm of lower lobe, right bronchus or lung; F17.210 Nicotine dependence, cigarettes, uncomplicated; J34.89 Other specified disorders of nose and nasal sinuses
CPT/HCPCS: 70553; A9585

== ENCOUNTER → 2024-12-14 | Outpatient (CLI) | payer MEDICARE, OTHER ==
--- NOTE | 2024-12-14 16:37 | PE ---
EXAMINATION TYPE: PET CT fusion skull to thigh DATE OF EXAM: 12/14/2024 COMPARISON: Prior PET/CT July 13, 2024 and older studies. HISTORY: Right-sided Lung cancer diagnosed 2022 progress study. Metastatic disease to the brain 2023. Chemotherapy treatment in 2024. TECHNIQUE: Following the intravenous administration of 8.0 mCi of F-18 FDG, whole body images are pe rformed from the skull base to the midthigh. Images are reviewed on the computer in the coronal, axi al, and sagittal planes. Reconstructed rotating images are created on independent workstation and re viewed on the computer. A localization and attenuation correction CT is performed in conjunction wi the PET scan. Blood glucose level equals 103. SCAN: Subsequent Scan FINDINGS: SKULL BASE AND NECK: No new or recurrent areas of abnormal hypermetabolic uptake. CHEST, MEDIASTINUM, AND HILAR REGION: Prior visualized multiple hypermetabolic lymph nodes throughout the thorax show no abnormal hypermetabolic uptake on current study. Persistent masslike consolidation throughout the right upper lung without abnormal hypermetabolic upt yola. The hypermetabolic uptake in nodule right midlung is resolved without suspicious nodularity at t his level seen on current study. No new areas of abnormal hypermetabolic uptake. ABDOMEN AND PELVIS: Normal excretion is seen. No hypermetabolic adrenal masses. No new areas of abnor mal hypermetabolic uptake OSSEOUS STRUCTURES: No new areas of abnormal hypermetabolic uptake OTHER CT: Moderate underlying emphysematous change bilaterally is redemonstrated. There is persistent cardiomegaly and mild coronary artery calcification. There is persistent right greater than left steffany ateral gynecomastia. Distal colonic diverticulosis redemonstrated. Old left inferior pelvic ramus fracture redemonstrated. IMPRESSION: No new or residual areas of abnormal hypermetabolic uptake on current study consistent wi complete positive treatment response. [facility], , 12/14/2024 4:35 PM
== END | disposition home or self-care (01) ==
LOC: RADPETMAIN 11:36
PROVIDERS: ATTEND Internal Medicine Hematology & Oncology
DX: C34.11 Malignant neoplasm of upper lobe, right bronchus or lung (principal); C79.31 Secondary malignant neoplasm of brain
CPT/HCPCS: 78815; A9552